=== PATIENT | female | born 1965 | race Caucasian/White ===

== ENCOUNTER 2019-01-30 18:40 | Inpatient (IN) | payer OTHER ==
--- NOTE | 2019-01-30 18:58 | PDOC ---
Rapid Medical Evaluation Chief Complaint: Headache Time Seen by Provider: 01/30/19 18:52 Medical Evaluation: 01/30/19 18:53 53 year old female with frequent falls now with unsteady gait. patient alert awake, legally blind. patient seen in the [facility] 4 x as per note from nurse. as per [facility] nurse patient did not have a ct scan for the head injury AT [facility] PE: patient alert A: head injury; unsteady gait P: patient to the ER for further management of care. Discharge Disposition - Diagnosis Headache Qualifiers: Headache type: unspecified Headache chronicity pattern: acute headache Intractability: not intractable Qualified Code(s): R51 - Headache Head injury Qualifiers: Encounter type: initial encounter Qualified Code(s): S09.90XA - Unspecified injury of head, initial encounter - Referrals - Patient Instructions - Post Discharge Activity
[2019-01-30 20:18] LABS: EPI CELLS 0.9 /HPF (0-5/HPF); HYALINE CASTS 0 /lpf (0-8); PH,URINE 6.5 (5.0-8.0); URINE APPEARANCE CLEAR; URINE BACTERIA 8.8 /hpf (NEGATIVE); URINE BILIRUBIN NEGATIVE (NEGATIVE); URINE COLOR YELLOW; URINE GLUCOSE (UA) NEGATIVE (NEGATIVE); URINE KETONE NEGATIVE (NEGATIVE); URINE LEUK ESTERASE 1+ (NEGATIVE); URINE NITRITE NEGATIVE (NEGATIVE); URINE PROTEIN NEGATIVE (NEGATIVE); URINE RBC 0 /hpf (0-4); URINE UROBILINOGEN 0.2 mg/dL (0.2-1.0); URINE WBC 2 /hpf (0-5)
[2019-01-30 21:14] LABS: BASO % 0.8 % (0-2.0); EOS % 1.8 % (0-4.5); HEMATOCRIT 29.2 % (32.4-45.2); HEMOGLOBIN 9.7 GM/dL (10.7-15.3); LYMPH % 43.6 % (8-40); MCHC 33.4 g/dl (32.0-36.0); MEAN CELL VOLUME 89.9 fl (80-96); MEAN PLT VOLUME 9.2 fl (7.5-11.1); MONO % 11.5 % (3.8-10.2); NEUT % 42.3 % (42.8-82.8); PLATELET COUNT 99 K/MM3 (134-434); RBC 3.25 M/mm3 (3.60-5.2)
[2019-01-30 21:40] LABS: ALBUMIN 3.3 g/dl (3.4-5.0); BILIRUBIN,TOTAL 0.3 mg/dL (0.2-1); BLOOD UREA NITROGEN 15.5 mg/dL (7-18); CALCIUM 9.4 mg/dL (8.5-10.1); CREATININE 0.6 mg/dL (0.55-1.3); POTASSIUM 4.1 mmol/L (3.5-5.1); TOT PROT 6.5 g/dl (6.4-8.2)
--- NOTE | 2019-01-30 22:37 | PDOC ---
History of Present Illness - General Chief Complaint: Injury Stated Complaint: FALL Time Seen by Provider: 01/30/19 18:52 History Source: Patient, Old Records, Other (staff from [facility]) Exam Limitations: No Limitations Past History - Past Medical History Allergies/Adverse Reactions: Allergies Allergy/AdvReac Type Severity Reaction Status Date / Time No Known Allergies Allergy Verified 01/30/19 18:53 Home Medications: Ambulatory Orders Calcium Carbonate/Vitamin D3 [Calcium 600 + D3 Softgel] 1 each PO DAILY Calcium Carbonate/Vitamin D3 [Calcium 600 + Vit D 400 Softgl] 1 each PO DAILY Cholecalciferol (Vitamin D3) [Vitamin D3] 1,000 unit PO DAILY 01/30/19 Lamotrigine [Lamictal] 100 mg PO AM 01/30/19 Lamotrigine [Lamictal] 200 mg PO HS 01/30/19 Levothyroxine Sodium [Synthroid] 75 mcg PO DAILY 01/30/19 Loratadine 10 mg PO DAILY 01/30/19 Miconazole Nitrate [Miconazorb AF] 71 gm TP BID 01/30/19 Multivitamin [Multiple Vitamins] 1 each PO DAILY 01/30/19 Simvastatin 20 mg PO DAILY 01/30/19 Thiamine HCl [Vitamin B-1] 100 mg PO DAILY 01/30/19 Ubidecarenone [Coenzyme Q-10] 30 mg PO DAILY 01/30/19 levETIRAcetam [Keppra -] 1,000 mg PO BID 01/30/19 - Suicide/Smoking/Psychosocial Hx Smoking History: Never smoked Hx Alcohol Use: No Drug/Substance Use Hx: No *Physical Exam - Vital Signs Last Vital Signs Temp Pulse Resp BP Pulse Ox 95 F L 52 L 18 125/71 100 01/30/19 21:20 01/30/19 21:20 01/30/19 21:20 01/30/19 21:20 01/30/19 21:20 - Physical Exam General Appearance: No: Apparent Distress HEENT: positive: Other (+L parietal hematoma, +mild swelling along forehead, + bruise below R eye) Respiratory/Chest: positive: Lungs Clear, Normal Breath Sounds. negative: Respiratory Distress Cardiovascular: positive: Regular Rhythm, Regular Rate, S1, S2. negative: Murmur Gastrointestinal/Abdominal: positive: Soft. negative: Tender Neurologic: positive: litigation coordinator II-XII NML intact, Fully Oriented, Alert, Normal Mood/ Affect, Motor Strength 5/5. negative: Facial Droop, Confused, Disoriented ED Treatment Course - LABORATORY CBC & Chemistry Diagram: 01/30/19 20:56 01/30/19 20:56 - ADDITIONAL ORDERS Additional order review: Laboratory Results 01/30/19 01/30/19 20:56 20:00 Sodium 150 H Potassium 4.1 Chloride 110 H Carbon Dioxide 40 H Anion Gap 0 L BUN 15.5 Creatinine 0.6 Est GFR (CKD-EPI)AfAm 120.61 Est GFR (CKD-EPI)NonAf 104.06 Random Glucose 66 L Calcium 9.4 Total Bilirubin 0.3 AST 46 H ALT 36 Alkaline Phosphatase 147 H Total Protein 6.5 Albumin 3.3 L Urine Color Yellow Urine Appearance Clear Urine pH 6.5 Ur Specific [place] 1.010 Urine Protein Negative Urine Glucose (UA) Negative Urine Ketones Negative Urine Blood Negative Urine Nitrite Negative Urine Bilirubin Negative Urine Urobilinogen 0.2 Ur Leukocyte Esterase 1+ H Urine WBC (Auto) 2 Urine RBC (Auto) 0 Urine Casts (Auto) 0 U Epithel Cells (Auto) 0.9 Urine Bacteria (Auto) 8.8 01/30/19 20:56 RBC 3.25 L MCV 89.9 MCHC 33.4 RDW 16.0 H MPV 9.2 Neutrophils % 42.3 L Lymphocytes % 43.6 H Monocytes % 11.5 H Eosinophils % 1.8 Basophils % 0.8 Medical Decision Making - Medical Decision Making 53 y/o F hx of bradycardia, lymphedema, hypothyroidism, seizures (on keppra and lamictal), legally blind since , from [facility] ([facility]) was sent in for evaluation by [facility] due to recurrent falls. Patient mentions feeling off balance x 3 weeks - 1 month, getting worse this week. Patient has trauma to head/face from falls. Patient was seen in [facility] 4x (01/19, , 01/28, 01/29) due to falls, but per records, no imaging was done of her brain. Patient denies this happening in the past. No seizure activity was noted per staff. Denies fever, sob, cp, vomiting, diarrhea, dizziness, vertigo, numbness/tingling of extremities. Patient noted to be hypothermic per rectal temp of 95 D/W Dr. Mcnamara - given afebrile, not tachycardic and normotensive with no source of fever, does not feel this is sepsis Abnormal Lab Results 01/30/19 01/30/19 01/30/19 20:00 20:56 20:56 WBC 3.0 L RBC 3.25 L Hgb 9.7 L Hct 29.2 L RDW 16.0 H Plt Count 99 L Absolute Neuts (auto) 1.3 L Neutrophils % 42.3 L Lymphocytes % 43.6 H Monocytes % 11.5 H Nucleated RBC % 1 H Sodium 150 H Chloride 110 H Carbon Dioxide 40 H Anion Gap 0 L Random Glucose 66 L AST 46 H Alkaline Phosphatase 147 H Albumin 3.3 L Ur Leukocyte Esterase 1+ H Rest of labs reviewed - pancytopenia noted, hypernatremic as well, glucose 66 Patient was placed on fluid restriction by her supervisor heat treating as patient had seizure last year due to hyponatremia (per staff, she is allowed 60 oz per day) Patient given food to eat CT head negative Will admit for likely need for MRI/MRA and neuro consult needed on admission to determine cause of ataxia Medicine paged and waiting to hear back 01/30/19 22:28 *DC/Admit/Observation/Transfer Diagnosis at time of Disposition: Ataxia - Discharge Dispostion Condition at time of disposition: Stable Decision to Admit order: Yes - Referrals Referrals: Mandy Durbin [Primary Care Provider] - - Patient Instructions - Post Discharge Activity
--- NOTE | 2019-01-30 23:41 | HP ---
Admitting History and Physical - Primary Care Physician PCP: Dr. lamb - Admission Chief Complaint: frequent falls, last fall 01/29 unsteady gait History of Present Illness: 53 year old female with PMhx of Hypothyroidism, seizures, legally blind, bradycardia, lymphedema arrived to ED from [facility]pc ([facility]) due to multiple falls in one week. Member fell (01/27,01/28, 911) when asked patient feels off balance when walking. Patient was seen in [facility] for priors falls , however according to patient no imaging were done. Patient noted with left side face/forehead with bruising, and left shoulder ecchymosis, ROM fair denies pain. According to patient last seizure activity she had of last year, no recent medication changes were made. When walking she feels off balance which she experienced in past but has been worsen of recent. Patient denies fever, sob, cp, dizziness, vertigo, vomiting, diarrhea, numbness/ tingling of extremities. 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 Cardiovascular: Yes: Other (bradycardia) Endocrine: Yes: Hyperthyroidism Additional Past Medical History: Legally blind since - Smoking History Smoking history: Never smoked Have you smoked in the past 12 months: No - Alcohol/Substance Use Hx Alcohol Use: No History of Substance Use: reports: None - Social History Usual Living Arrangement: Yes: Assisted Living ADL: Support Services History of Recent Travel: No Home Medications - Allergies Allergies/Adverse Reactions: Allergies Allergy/AdvReac Type Severity Reaction Status Date / Time No Known Allergies Allergy Verified 01/30/19 18:53 - Home Medications Home Medications: Ambulatory Orders Calcium Carbonate/Vitamin D3 [Calcium 600 + D3 Softgel] 1 each PO DAILY Calcium Carbonate/Vitamin D3 [Calcium 600 + Vit D 400 Softgl] 1 each PO DAILY Cholecalciferol (Vitamin D3) [Vitamin D3] 1,000 unit PO DAILY 01/30/19 Lamotrigine [Lamictal] 100 mg PO AM 01/30/19 Lamotrigine [Lamictal] 200 mg PO HS 01/30/19 Levothyroxine Sodium [Synthroid] 75 mcg PO DAILY 01/30/19 Loratadine 10 mg PO DAILY 01/30/19 Miconazole Nitrate [Miconazorb AF] 71 gm TP BID 01/30/19 Multivitamin [Multiple Vitamins] 1 each PO DAILY 01/30/19 Simvastatin 20 mg PO DAILY 01/30/19 Thiamine HCl [Vitamin B-1] 100 mg PO DAILY 01/30/19 Ubidecarenone [Coenzyme Q-10] 30 mg PO DAILY 01/30/19 levETIRAcetam [Keppra -] 1,000 mg PO BID 01/30/19 Family Disease History - Family Disease History Family Disease History: CA: Mother (Lung Ca) Review of Systems - Review of Systems Constitutional: reports: Other ("fells off balance") Eyes: reports: Other (legally blind) HENT: reports: No Symptoms Neck: reports: No Symptoms Cardiovascular: reports: No Symptoms Respiratory: reports: No Symptoms Gastrointestinal: reports: No Symptoms Genitourinary: reports: No Symptoms Musculoskeletal: reports: No Symptoms, Other Integumentary: reports: Bruising (left side face, forehead, left shoulder ecchymosis) Neurological: reports: Unsteady Gait Endocrine: reports: No Symptoms Hematology/Lymphatic: reports: Other (left shoulder ecchymosis (post fall)) Psychiatric: reports: No Symptoms Physical Examination Vital Signs: Vital Signs Temperature 95 F L 01/30/19 21:20 Pulse Rate 52 L 01/30/19 21:20 Respiratory Rate 18 01/30/19 21:20 Blood Pressure 125/71 01/30/19 21:20 O2 Sat by Pulse Oximetry (%) 100 01/30/19 21:20 Constitutional: Yes: No Distress, Calm HENT: Yes: Atraumatic, Normocephalic Neck: Yes: Supple, Trachea Midline Cardiovascular: Yes: Regular Rate and Rhythm Respiratory: Yes: Regular, CTA Bilaterally Gastrointestinal: Yes: Normal Bowel Sounds, Soft Musculoskeletal: Yes: WNL Extremities: Yes: WNL Edema: No Peripheral Pulses WNL: Yes Integumentary: Yes: Other (ecchymosis left shoudler, left side face, forhead brusing) Neurological: Yes: Alert, Oriented, Ataxia, Unsteady Gait ...Motor Strength: WNL Psychiatric: Yes: WNL Labs: CBC, BMP 01/30/19 20:56 01/30/19 20:56 Imaging - Results Cat Scan: Report Reviewed (CT head: no acute pathology) Problem List - Problems (1) Multiple falls Code(s): R29.6 - REPEATED FALLS (2) Ataxia Code(s): R27.0 - ATAXIA, UNSPECIFIED (3) Seizure Code(s): R56.9 - UNSPECIFIED CONVULSIONS (4) Hypernatremia Code(s): E87.0 - HYPEROSMOLALITY AND HYPERNATREMIA (5) Pancytopenia Code(s): D61.818 - OTHER PANCYTOPENIA (6) Hypothyroidism Code(s): E03.9 - HYPOTHYROIDISM, UNSPECIFIED (7) Bradycardia Code(s): R00.1 - BRADYCARDIA, UNSPECIFIED (8) Legally blind Code(s): H54.8 - LEGAL BLINDNESS, DEFINED IN [place] Assessment/Plan 53 year old female with PMhx of Hypothyroidism, seizures, legally blind, bradycardia, HLD, lymphedema arrived to ED from [facility]pc ([facility]) due to multiple falls in one week. Member fell (01/27,01/28, 911) when asked patient feels off balance when walking. # Ataxia #Multiple falls # bradycardia - 3 falls in week - patient also noted with panctopenia, hypothermic - CT head: negative - EKG: sinus shreya, no st changes - monitor vitals q 4 - will repeat cbc, bmp in AM - follow up neurology,? MRI/MRA - consider Cardiology follow up h/o bradycardia, and multiple falls # seizure - last seizure activity 2x (May, October) in 2018 - continue with keppra 1000 mg BID - continue with lamictal 100mg po Am , 200mg po QHS - takes Coenzyme 30 mg daily - follow up keppra level, coenzyme level - neurology follow up # Hypothyroidism - continue with synthroid 75 mcg - follow up TSH,T4 # HLD - continue with zocor 20 mg po daily Visit type - Emergency Visit Emergency Visit: Yes ED Registration Date: 01/30/19 Care time: The patient presented to the Emergency Department on the above date and was hospitalized for further evaluation of their emergent condition. - New Patient This patient is new to me today: Yes Date on this admission: 01/31/19 - Critical Care Critical Care patient: No
[2019-01-31 01:12] VITALS: BMI 21.7
[2019-01-31] MEDS ORDERED: SCOPOLAMINE HYDROBROMIDE 1 PATCH PATCH.TD72 TD SCH (04:00)
[2019-01-31] MEDS ORDERED: LAMOTRIGINE 100 MG PO SCH (07:00)
[2019-01-31] MEDS ORDERED: LEVOTHYROXINE NA 75 MCG TABLET (FP) PO SCH (07:00)
[2019-01-31 08:08] LABS: HEMATOCRIT 27.8 % (32.4-45.2); HEMOGLOBIN 9.5 GM/dL (10.7-15.3); MCH 30.3 pg (25.7-33.7); MCHC 34.1 g/dl (32.0-36.0); MEAN CELL VOLUME 88.8 fl (80-96); MEAN PLT VOLUME 8.8 fl (7.5-11.1); PLATELET COUNT 91 K/MM3 (134-434); RBC 3.12 M/mm3 (3.60-5.2); RDW 15.9 % (11.6-15.6); WHITE BLOOD COUNT 2.6 K/mm3 (4.0-10.0)
[2019-01-31 08:44] LABS: CHOLESTEROL 197 mg/dL (50-200); HDL CHOLESTEROL 109 mg/dL (40-60); TRIGLYCERIDES 51 mg/dL (0-150)
[2019-01-31 09:03] LABS: ALBUMIN 3.2 g/dl (3.4-5.0); BILIRUBIN,TOTAL 0.4 mg/dL (0.2-1); BLOOD UREA NITROGEN 12.1 mg/dL (7-18); CALCIUM 9.6 mg/dL (8.5-10.1); CREATININE 0.6 mg/dL (0.55-1.3); POTASSIUM 3.7 mmol/L (3.5-5.1); TOT PROT 6.2 g/dl (6.4-8.2)
--- NOTE | 2019-01-31 09:23 | CONSULT ---
Consult Consult Specialty:: Endocrinology Referred by:: Dr Miller Reason for Consultation:: Hypothyroidism - History of Present Illness Chief Complaint: Falls History of Present Illness: This is a 53 year old female with PMhx of Hypothyroidism, seizures, legally blind since , bradycardia, lymphedema presented [facility] ED from [facility] due to multiple falls in one week. Pt says she usually falls when she leans forward to worm picker stuff from the floor. Denies any heat or cold intolerance. No CP/SOB/Palpitations. Was told to drink only 60oz of water in 24 hours by her MD at the facility. 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 Cardio/Vascular: Yes: Other (bradycardia) ...: No Endocrine: Yes: Hyperthyroidism - Alcohol/Substance Use Hx Alcohol Use: No History of Substance Use: reports: None - Smoking History Smoking history: Never smoked Have you smoked in the past 12 months: No - Social History ADL: Support Services History of Recent Travel: No Home Medications - Allergies Allergies/Adverse Reactions: Allergies Allergy/AdvReac Type Severity Reaction Status Date / Time No Known Allergies Allergy Verified 01/30/19 18:53 - Home Medications Home Medications: Ambulatory Orders Calcium Carbonate/Vitamin D3 [Calcium 600 + D3 Softgel] 1 each PO DAILY Calcium Carbonate/Vitamin D3 [Calcium 600 + Vit D 400 Softgl] 1 each PO DAILY Cholecalciferol (Vitamin D3) [Vitamin D3] 1,000 unit PO DAILY 01/30/19 Lamotrigine [Lamictal] 100 mg PO AM 01/30/19 Lamotrigine [Lamictal] 200 mg PO HS 01/30/19 Levothyroxine Sodium [Synthroid] 75 mcg PO DAILY 01/30/19 Loratadine 10 mg PO DAILY 01/30/19 Miconazole Nitrate [Miconazorb AF] 71 gm TP BID 01/30/19 Multivitamin [Multiple Vitamins] 1 each PO DAILY 01/30/19 Simvastatin 20 mg PO DAILY 01/30/19 Thiamine HCl [Vitamin B-1] 100 mg PO DAILY 01/30/19 Ubidecarenone [Coenzyme Q-10] 30 mg PO DAILY 01/30/19 levETIRAcetam [Keppra -] 1,000 mg PO BID 01/30/19 Haloperidol [Haldol -] 0.5 tab PO HS 01/31/19 Olopatadine HCl [Pataday] 2.5 ml OP DAILY 01/31/19 Scopolamine 1 each TD Q3D 01/31/19 Family Disease History - Family Disease History Family Disease History: CA: Mother (Lung Ca) Review of Systems - Review of Systems Constitutional: reports: No Symptoms Eyes: reports: No Symptoms HENT: reports: No Symptoms Neck: reports: No Symptoms Cardiovascular: reports: No Symptoms Respiratory: reports: No Symptoms Gastrointestinal: reports: No Symptoms Musculoskeletal: reports: No Symptoms Integumentary: reports: No Symptoms Psychiatric: reports: No Symptoms Physical Exam Vital Signs: Vital Signs Temperature 96 F L 01/31/19 06:24 Pulse Rate 49 L 01/31/19 05:00 Respiratory Rate 18 01/31/19 05:00 Blood Pressure 114/70 01/31/19 05:00 O2 Sat by Pulse Oximetry (%) 100 01/30/19 22:59 Constitutional: Yes: No Distress, Calm HENT: Yes: Normocephalic Neck: Yes: Supple, Trachea Midline Cardiovascular: Yes: Regular Rate and Rhythm Respiratory: Yes: Regular, CTA Bilaterally Edema: No Neurological: Yes: Alert, Oriented Labs: CBC, BMP 01/31/19 07:27 01/31/19 07:27 Assessment/Plan AP: Hypothyroidism Blindness Falls Leukopenia With a TSH of 5.39, her symptoms are unlikely to be related to her thyroid status Continue LT4 75 mcg QD Monitor electrolytes Monitor CBC Monitor Blood sugar, w/u if pt develops symptomatic hypoglycemia Get record from MD at facility if possible Will f/u I am away unitil 02.03.19. Dr Parker is covering. Please call me at [phone] with any questions.
[2019-01-31] MEDS ORDERED: lamoTRIgine 100 MG TABLET (FP) PO SCH ×2 (10:00→22:00)
[2019-01-31] MEDS ORDERED: HEPARIN NA (PORCINE) 5,000 UNITS/ML 1ML VIAL SQ SCH (10:00)
[2019-01-31] MEDS ORDERED: levETIRAcetam 500 MG TABLET (FP) PO SCH (10:00)
--- NOTE | 2019-01-31 12:55 | CONSULT ---
Consult - text type - Consultation Consultation Note: NEUROLOGY CONSULT GREATLY APPRECIATED: Events reviewed and discussed with ANANT Bernardo. Patient examined. This 53 yo RH woman with hypothyroidism, seizures since adolescence, HLD, congenital blindness. Lives in a alf and ambulates without assistance. On: Vit D3, lamictal 100 mg QAM/200 mg HS, loratadine, MTV, simvastatin, thiamine 100 mg qd, leveteracitam 1000 mg Q12H, Haldol 0.5 mg HS, scopolamine. Describes seizures in childhood were loss of tone without prodrome, obscuration of consciousness, but not LOC. + Urinary incontinence Has been on and off psychotropic meds for almost 30 years, including Haldol and Abilify for auditory hallucinations and ideas of grandiosity. Now on Haldod with increased difficulty walking, swallowing, "drooling" for which she is given Scopolamine patch. This was also accompanied by persistent falls without prodrome attributed to "seizures," but this time without urinary incontinence. Admits she began to decline psychotropic meds, but continues taking her AED's at the alf. Head CT (reviewed): left parietal scalp hematoma. WBC= 2.6 platelets 91; TSH 5.39; Urine WBC= 2 SHANELLE: Thin/tiny stature. Cor reg. Lymphedema in legs. Various ages ecchymosis to R samaritan/R eyelid. L shoulder, R wrist. NEURO: Awake, alert, responsive. [facility] Jan 31, 2019. CNII-CNXII: Blind. Smile symmetric. Gag ok. Excess oral secretions. Motor: No rest tremor or drift. Symmetric grasps. Decreased JULISSA's R > L. + Cogwheeling with reinforcement. Reflexes normal. Toes downgoing. Coordination: No FTN dystaxia. Sensation: Feels pinch all fours. Gait: Sl flexed, shuffling. Retropulsive. 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 Doubt seizures caused this admission. 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 Suggest: Orthostatic BPs Carotid duplex Contine leveteracitam 1500 mg q12H and change lamictal to 200 mg q12H. Observe off Haldol.(may also be causing agranoulocytosis, hyponatremia) D/C scopolamine patch as anticholinergic effects may worsen hallucinations and cognition. If hallucinations persist, consider addition of quetiapine 25 -> 50 mg HS PT eval with walker for gait safety Thank you very much, Joaquín Hector MD
--- NOTE | 2019-01-31 14:02 | EKG ---
Test Reason : Blood Pressure : / mmHG Vent. Rate : 054 BPM Atrial Rate : 054 BPM P-R Int : 130 ms QRS Dur : 102 ms QT Int : 460 ms P-R-T Axes : 057 041 053 degrees QTc Int : 436 ms POOR DATA QUALITY, INTERPRETATION MAY BE ADVERSELY AFFECTED SINUS BRADYCARDIA NO PREVIOUS ECGS AVAILABLE Confirmed by FIDELINA WILLIS MD ([id number]) on 01/31/2019 2:02:12 PM Referred By: Confirmed By:FIDELINA WILLIS MD
--- NOTE | 2019-01-31 14:23 | PN ---
Teaching Attending Note Name of Resident: Woodrow Cerrato ATTENDING PHYSICIAN STATEMENT I saw and evaluated the patient. I reviewed the resident's note and discussed the case with the resident. I agree with the resident's findings and plan as documented with exceptions below. SUBJECTIVE: patient seen and examined, no complaints. reports has been unsteady and falling at the long-term. However few episodes, with no full recollection though not aware of any shaking, tongue bite or confusion after the episode. OBJECTIVE: Vital Signs Period Temp Pulse Resp BP Sys/Andrade Pulse Ox Last 24 Hr 95 F-98.2 F 46-57 18-18 104-125/68-73 100-100 Intake & Output 01/28/19 01/29/19 01/30/19 01/31/19 23:59 23:59 23:59 23:59 Intake Total 100 100 Balance 100 100 Weight 107 lb 12.8 oz General: sitting in bed in no acute distress, awake, appropriate, HEENT: legally blind, right hi-orbital resolving ecchymosis Neck; Soft, supple, no JVD Chest: limited by habitus, no rales or wheezing Abdomen:Soft, Nt ND extremities: UE contractures with limited ROM Musculoskeletal: limited ROM left shoulder/clavicular region Home Medications Medication Instructions Recorded Calcium Carbonate/Vitamin D3 1 each PO DAILY 01/30/19 [Calcium 600 + D3 Softgel] Calcium Carbonate/Vitamin D3 1 each PO DAILY 01/30/19 [Calcium 600 + Vit D 400 Softgl] Cholecalciferol (Vitamin D3) 1,000 unit PO DAILY 01/30/19 [Vitamin D3] Lamotrigine [Lamictal] 100 mg PO AM 01/30/19 Lamotrigine [Lamictal] 200 mg PO HS 01/30/19 Levothyroxine Sodium [Synthroid] 75 mcg PO DAILY 01/30/19 Loratadine 10 mg PO DAILY 01/30/19 Miconazole Nitrate [Miconazorb AF] 71 gm TP BID 01/30/19 Multivitamin [Multiple Vitamins] 1 each PO DAILY 01/30/19 Simvastatin 20 mg PO DAILY 01/30/19 Thiamine HCl [Vitamin B-1] 100 mg PO DAILY 01/30/19 Ubidecarenone [Coenzyme Q-10] 30 mg PO DAILY 01/30/19 levETIRAcetam [Keppra -] 1,000 mg PO BID 01/30/19 Haloperidol [Haldol -] 0.5 tab PO HS 01/31/19 Olopatadine HCl [Pataday] 2.5 ml OP DAILY 01/31/19 Scopolamine 1 each TD Q3D 01/31/19 Active Medications Heparin Sodium (Porcine) (Heparin -) 5,000 unit SQ BID [facility] Last Admin: 01/31/19 10:09 Dose: 5,000 unit Lamotrigine (Lamictal -) 200 mg PO HS [facility] Lamotrigine (Lamictal -) 100 mg PO DAILY [facility] Last Admin: 01/31/19 10:08 Dose: 100 mg Levetiracetam (Keppra -) 1,000 mg PO BID [facility] Last Admin: 01/31/19 10:08 Dose: 1,000 mg Levothyroxine Sodium (Synthroid -) 75 mcg PO ACBK [facility] Last Admin: 01/31/19 06:00 Dose: 75 mcg Scopolamine HBr (Transderm-Scop -) 1 patch TD Q3D [facility] Last Admin: 01/31/19 06:01 Dose: 1 patch Laboratory Results - last 24 hr 01/30/19 01/30/19 01/30/19 20:00 20:56 20:56 WBC 3.0 L RBC 3.25 L Hgb 9.7 L Hct 29.2 L MCV 89.9 MCH 30.0 MCHC 33.4 RDW 16.0 H Plt Count 99 L MPV 9.2 Absolute Neuts (auto) 1.3 L Neutrophils % 42.3 L Lymphocytes % 43.6 H Monocytes % 11.5 H Eosinophils % 1.8 Basophils % 0.8 Nucleated RBC % 1 H Sodium 150 H Potassium 4.1 Chloride 110 H Carbon Dioxide 40 H Anion Gap 0 L BUN 15.5 Creatinine 0.6 Est GFR (CKD-EPI)AfAm 120.61 Est GFR (CKD-EPI)NonAf 104.06 POC Glucometer Random Glucose 66 L Serum Osmolality Calcium 9.4 Total Bilirubin 0.3 AST 46 H ALT 36 Alkaline Phosphatase 147 H Total Protein 6.5 Albumin 3.3 L Triglycerides Cholesterol Total LDL Cholesterol HDL Cholesterol TSH Free T4 Urine Color Yellow Urine Appearance Clear Urine pH 6.5 Ur Specific [place] 1.010 Urine Protein Negative Urine Glucose (UA) Negative Urine Ketones Negative Urine Blood Negative Urine Nitrite Negative Urine Bilirubin Negative Urine Urobilinogen 0.2 Ur Leukocyte Esterase 1+ H Urine WBC (Auto) 2 Urine RBC (Auto) 0 Urine Casts (Auto) 0 U Epithel Cells (Auto) 0.9 Urine Bacteria (Auto) 8.8 01/31/19 01/31/19 01/31/19 07:27 07:27 07:27 WBC 2.6 L RBC 3.12 L Hgb 9.5 L Hct 27.8 L MCV 88.8 MCH 30.3 MCHC 34.1 RDW 15.9 H Plt Count 91 L MPV 8.8 Absolute Neuts (auto) Neutrophils % Lymphocytes % Monocytes % Eosinophils % Basophils % Nucleated RBC % Sodium Potassium Chloride Carbon Dioxide Anion Gap BUN Creatinine Est GFR (CKD-EPI)AfAm Est GFR (CKD-EPI)NonAf POC Glucometer Random Glucose Serum Osmolality Calcium Total Bilirubin AST ALT Alkaline Phosphatase Total Protein Albumin Triglycerides Cholesterol Total LDL Cholesterol HDL Cholesterol TSH 5.39 H Free T4 1.11 Urine Color Urine Appearance Urine pH Ur Specific [place] Urine Protein Urine Glucose (UA) Urine Ketones Urine Blood Urine Nitrite Urine Bilirubin Urine Urobilinogen Ur Leukocyte Esterase Urine WBC (Auto) Urine RBC (Auto) Urine Casts (Auto) U Epithel Cells (Auto) Urine Bacteria (Auto) 01/31/19 01/31/19 01/31/19 07:27 07:27 09:40 WBC RBC Hgb Hct MCV MCH MCHC RDW Plt Count MPV Absolute Neuts (auto) Neutrophils % Lymphocytes % Monocytes % Eosinophils % Basophils % Nucleated RBC % Sodium 148 H Potassium 3.7 Chloride 109 H Carbon Dioxide 34 H Anion Gap 5 L BUN 12.1 Creatinine 0.6 Est GFR (CKD-EPI)AfAm 120.61 Est GFR (CKD-EPI)NonAf 104.06 POC Glucometer Random Glucose 55 L Serum Osmolality 310 H Calcium 9.6 Total Bilirubin 0.4 AST 43 H ALT 33 Alkaline Phosphatase 140 H Total Protein 6.2 L Albumin 3.2 L Triglycerides 51 Cholesterol 197 Total LDL Cholesterol 59 HDL Cholesterol 109 H TSH Free T4 Urine Color Urine Appearance Urine pH Ur Specific [place] Urine Protein Urine Glucose (UA) Urine Ketones Urine Blood Urine Nitrite Urine Bilirubin Urine Urobilinogen Ur Leukocyte Esterase Urine WBC (Auto) Urine RBC (Auto) Urine Casts (Auto) U Epithel Cells (Auto) Urine Bacteria (Auto) 01/31/19 11:11 WBC RBC Hgb Hct MCV MCH MCHC RDW Plt Count MPV Absolute Neuts (auto) Neutrophils % Lymphocytes % Monocytes % Eosinophils % Basophils % Nucleated RBC % Sodium Potassium Chloride Carbon Dioxide Anion Gap BUN Creatinine Est GFR (CKD-EPI)AfAm Est GFR (CKD-EPI)NonAf POC Glucometer 99 Random Glucose Serum Osmolality Calcium Total Bilirubin AST ALT Alkaline Phosphatase Total Protein Albumin Triglycerides Cholesterol Total LDL Cholesterol HDL Cholesterol TSH Free T4 Urine Color Urine Appearance Urine pH Ur Specific [place] Urine Protein Urine Glucose (UA) Urine Ketones Urine Blood Urine Nitrite Urine Bilirubin Urine Urobilinogen Ur Leukocyte Esterase Urine WBC (Auto) Urine RBC (Auto) Urine Casts (Auto) U Epithel Cells (Auto) Urine Bacteria (Auto) ASSESSMENT AND PLAN: 53 yof with PMHx of Hypothyroidism, seizures, legally blind, bradycardia, lymphedema, ?hyponatremia, admitted with frequent falls, noted with hypothermia , bradycardia, hypernatremia -Recurrent falls/Gait instability -Hypothermia, hypothyroidism, r/o infection -Hypernatremia, ?from fluid restriction, r/o DI (central vs nephrogenic),?drug mediated. -Hypoglycemia -Sinus bradycardia, ?hypothyroidism Plan: patient reports h/o seizures attributed to hyponatremia, on fluid restriction earlier 33 oz, now upto 60 oz per pv design and installation technician at [facility]. retrieve prior information. Check urine electrolytes, urine/serum osmolarity. Nephrology/Endocrine consult. Encourage free water intake. Hold off on IV hydration for now Hypothermia, but patient asymptomatic. Screen for infection. Blood cx and ua/ urine cultures. Gene barrios prn. Follow up endocrine input, Continue levothyroxine. recurrent falls, patient unsure of seizures. Neurology input. Continue Keppra/ Lamictal. Seizure precautions. transfer to telemetry. discussed with patient and nursing, all questions answered.
[2019-01-31 15:00] LABS: EPI CELLS 0.5 /HPF (0-5/HPF); HYALINE CASTS 0 /lpf (0-8); PH,URINE 8.5 (5.0-8.0); URINE APPEARANCE CLEAR; URINE BACTERIA 8.6 /hpf (NEGATIVE); URINE BILIRUBIN NEGATIVE (NEGATIVE); URINE COLOR YELLOW; URINE GLUCOSE (UA) NEGATIVE (NEGATIVE); URINE KETONE NEGATIVE (NEGATIVE); URINE LEUK ESTERASE NEGATIVE (NEGATIVE); URINE NITRITE NEGATIVE (NEGATIVE); URINE PROTEIN NEGATIVE (NEGATIVE); URINE RBC 1 /hpf (0-4); URINE UROBILINOGEN 0.2 mg/dL (0.2-1.0); URINE WBC 0 /hpf (0-5)
--- NOTE | 2019-01-31 15:55 | CONSULT ---
Consult Consult Specialty:: Nephrology Reason for Consultation:: hypernatremia - History of Present Illness Chief Complaint: s/p fall History of Present Illness: Pt is a 53 year old female with pmhx of hypothyroidism, epilepsy, legally blind , bradycardia, lymphedema, and hyponatremia treated with fluid restriction who presents to the ER with multiple falls. She says that she was diagnosed with hyponatremia in an outside facility and was placed on a fluid restriction. Her sodium has been mildly elevated and her fluid restriction was liberated to 60 oz. She denies shortness of breath. She denies polyuria. She denies headache. She denies vomiting or diarrhea. - History Source History Provided By: Patient, Medical Record - Past Medical History REHAB/PRE VOCATIONAL COUNSELOR: Yes: Seizure Cardio/Vascular: Yes: Other (bradycardia) Renal/: Yes: Other (hyponatremia) ...: No Endocrine: Yes: Hypothyroidism - Alcohol/Substance Use Hx Alcohol Use: No History of Substance Use: reports: None - Smoking History Smoking history: Never smoked Have you smoked in the past 12 months: No - Social History ADL: Support Services History of Recent Travel: No Home Medications - Allergies Allergies/Adverse Reactions: Allergies Allergy/AdvReac Type Severity Reaction Status Date / Time No Known Allergies Allergy Verified 01/30/19 18:53 - Home Medications Home Medications: Ambulatory Orders Calcium Carbonate/Vitamin D3 [Calcium 600 + D3 Softgel] 1 each PO DAILY Calcium Carbonate/Vitamin D3 [Calcium 600 + Vit D 400 Softgl] 1 each PO DAILY Cholecalciferol (Vitamin D3) [Vitamin D3] 1,000 unit PO DAILY 01/30/19 Lamotrigine [Lamictal] 100 mg PO AM 01/30/19 Lamotrigine [Lamictal] 200 mg PO HS 01/30/19 Levothyroxine Sodium [Synthroid] 75 mcg PO DAILY 01/30/19 Loratadine 10 mg PO DAILY 01/30/19 Miconazole Nitrate [Miconazorb AF] 71 gm TP BID 01/30/19 Multivitamin [Multiple Vitamins] 1 each PO DAILY 01/30/19 Simvastatin 20 mg PO DAILY 01/30/19 Thiamine HCl [Vitamin B-1] 100 mg PO DAILY 01/30/19 Ubidecarenone [Coenzyme Q-10] 30 mg PO DAILY 01/30/19 levETIRAcetam [Keppra -] 1,000 mg PO BID 01/30/19 Haloperidol [Haldol -] 0.5 tab PO HS 01/31/19 Olopatadine HCl [Pataday] 2.5 ml OP DAILY 01/31/19 Scopolamine 1 each TD Q3D 01/31/19 Family Disease History - Family Disease History Family Disease History: CA: Mother (Lung Ca) Review of Systems - Review of Systems Constitutional: reports: Malaise Eyes: reports: Other (legally blind) HENT: reports: No Symptoms Neck: reports: No Symptoms Cardiovascular: reports: No Symptoms Respiratory: reports: No Symptoms Gastrointestinal: reports: No Symptoms Genitourinary: reports: No Symptoms Musculoskeletal: reports: No Symptoms Integumentary: reports: No Symptoms Neurological: reports: No Symptoms Endocrine: reports: No Symptoms Hematology/Lymphatic: reports: No Symptoms Psychiatric: reports: No Symptoms Physical Exam Vital Signs: Vital Signs Temperature 97.7 F 01/31/19 14:00 Pulse Rate 66 01/31/19 14:00 Respiratory Rate 18 01/31/19 14:00 Blood Pressure 105/67 01/31/19 14:00 O2 Sat by Pulse Oximetry (%) 100 01/31/19 09:00 Constitutional: Yes: Calm Eyes: Yes: Conjunctiva Clear HENT: Yes: Atraumatic Neck: Yes: Supple Cardiovascular: Yes: S1, S2 Respiratory: Yes: CTA Bilaterally Renal/: Yes: WNL Musculoskeletal: Yes: WNL Edema: Yes Edema: LLE: 1+, RLE: 1+ Neurological: Yes: Oriented Psychiatric: Yes: Oriented Labs: CBC, BMP 01/31/19 07:27 01/31/19 07:27 Imaging - Results Cat Scan: Report Reviewed Problem List - Problems (1) Bradycardia Code(s): R00.1 - BRADYCARDIA, UNSPECIFIED (2) Hypernatremia Code(s): E87.0 - HYPEROSMOLALITY AND HYPERNATREMIA (3) Hypothyroidism Code(s): E03.9 - HYPOTHYROIDISM, UNSPECIFIED (4) Legally blind Code(s): H54.8 - LEGAL BLINDNESS, DEFINED IN [place] (5) Multiple falls Code(s): R29.6 - REPEATED FALLS (6) Pancytopenia Code(s): D61.818 - OTHER PANCYTOPENIA (7) Seizure Code(s): R56.9 - UNSPECIFIED CONVULSIONS Assessment/Plan Current Medications Generic Name Dose Route Start Last Admin Trade Name Carin PRN Reason Stop Dose Admin Heparin Sodium (Porcine) 5,000 unit 01/31/19 22:00 Heparin - SQ BID [facility] Lamotrigine 200 mg 01/31/19 22:00 Lamictal - PO HS [facility] Lamotrigine 100 mg 02/01/19 10:00 Lamictal - PO DAILY [facility] Levetiracetam 1,000 mg 01/31/19 22:00 Keppra - PO BID [facility] Levothyroxine Sodium 75 mcg 02/01/19 07:00 Synthroid - PO ACBK [facility] Impression 1. hypernatremia 2. legally blind 3. hypothyroidism 4. lymphedema 5. bradycardia 6. epilpsy Plan - pt has a free water deficit of about 1.4 liters - will give PO free water - repeat labs tomorrow - measure urine output and monitor for polyuria - likely hypernatremia from her free water restriction
--- NOTE | 2019-01-31 18:02 | PN ---
Physical Exam: SUBJECTIVE: Patient seen and examined at bedside. No complaints at this time. Pt states she has known sodium dysregulation for which her junior sales assistant has been regulating her fluid intake. OBJECTIVE: Vital Signs Period Temp Pulse Resp BP Sys/Andrade Pulse Ox Last 24 Hr 95 F-98.2 F 46-66 18-18 104-125/67-73 100-100 Gen: small stature, NAD, AAOx3 HEENT: NCAT, congenital blindness Neck: supple, no jvd Cardio: bradycardic, regular, no mrg, s1s2 Pulm: cta b/l Abd: soft, nontender, nondistended Laboratory Results - last 24 hr 01/30/19 01/30/19 01/30/19 20:00 20:56 20:56 WBC 3.0 L RBC 3.25 L Hgb 9.7 L Hct 29.2 L MCV 89.9 MCH 30.0 MCHC 33.4 RDW 16.0 H Plt Count 99 L MPV 9.2 Absolute Neuts (auto) 1.3 L Neutrophils % 42.3 L Lymphocytes % 43.6 H Monocytes % 11.5 H Eosinophils % 1.8 Basophils % 0.8 Nucleated RBC % 1 H Sodium 150 H Potassium 4.1 Chloride 110 H Carbon Dioxide 40 H Anion Gap 0 L BUN 15.5 Creatinine 0.6 Est GFR (CKD-EPI)AfAm 120.61 Est GFR (CKD-EPI)NonAf 104.06 POC Glucometer Random Glucose 66 L Serum Osmolality Calcium 9.4 Total Bilirubin 0.3 AST 46 H ALT 36 Alkaline Phosphatase 147 H Total Protein 6.5 Albumin 3.3 L Triglycerides Cholesterol Total LDL Cholesterol HDL Cholesterol TSH Free T4 Urine Color Yellow Urine Appearance Clear Urine pH 6.5 Ur Specific [place] 1.010 Urine Protein Negative Urine Glucose (UA) Negative Urine Ketones Negative Urine Blood Negative Urine Nitrite Negative Urine Bilirubin Negative Urine Urobilinogen 0.2 Ur Leukocyte Esterase 1+ H Urine WBC (Auto) 2 Urine RBC (Auto) 0 Urine Casts (Auto) 0 U Epithel Cells (Auto) 0.9 Urine Bacteria (Auto) 8.8 Urine Osmolality Ur Random Sodium Ur Random Potassium Ur Random Chloride 01/31/19 01/31/19 01/31/19 07:27 07:27 07:27 WBC 2.6 L RBC 3.12 L Hgb 9.5 L Hct 27.8 L MCV 88.8 MCH 30.3 MCHC 34.1 RDW 15.9 H Plt Count 91 L MPV 8.8 Absolute Neuts (auto) Neutrophils % Lymphocytes % Monocytes % Eosinophils % Basophils % Nucleated RBC % Sodium Potassium Chloride Carbon Dioxide Anion Gap BUN Creatinine Est GFR (CKD-EPI)AfAm Est GFR (CKD-EPI)NonAf POC Glucometer Random Glucose Serum Osmolality Calcium Total Bilirubin AST ALT Alkaline Phosphatase Total Protein Albumin Triglycerides Cholesterol Total LDL Cholesterol HDL Cholesterol TSH 5.39 H Free T4 1.11 Urine Color Urine Appearance Urine pH Ur Specific [place] Urine Protein Urine Glucose (UA) Urine Ketones Urine Blood Urine Nitrite Urine Bilirubin Urine Urobilinogen Ur Leukocyte Esterase Urine WBC (Auto) Urine RBC (Auto) Urine Casts (Auto) U Epithel Cells (Auto) Urine Bacteria (Auto) Urine Osmolality Ur Random Sodium Ur Random Potassium Ur Random Chloride 01/31/19 01/31/19 01/31/19 07:27 07:27 09:40 WBC RBC Hgb Hct MCV MCH MCHC RDW Plt Count MPV Absolute Neuts (auto) Neutrophils % Lymphocytes % Monocytes % Eosinophils % Basophils % Nucleated RBC % Sodium 148 H Potassium 3.7 Chloride 109 H Carbon Dioxide 34 H Anion Gap 5 L BUN 12.1 Creatinine 0.6 Est GFR (CKD-EPI)AfAm 120.61 Est GFR (CKD-EPI)NonAf 104.06 POC Glucometer Random Glucose 55 L Serum Osmolality 310 H Calcium 9.6 Total Bilirubin 0.4 AST 43 H ALT 33 Alkaline Phosphatase 140 H Total Protein 6.2 L Albumin 3.2 L Triglycerides 51 Cholesterol 197 Total LDL Cholesterol 59 HDL Cholesterol 109 H TSH Free T4 Urine Color Urine Appearance Urine pH Ur Specific [place] Urine Protein Urine Glucose (UA) Urine Ketones Urine Blood Urine Nitrite Urine Bilirubin Urine Urobilinogen Ur Leukocyte Esterase Urine WBC (Auto) Urine RBC (Auto) Urine Casts (Auto) U Epithel Cells (Auto) Urine Bacteria (Auto) Urine Osmolality Ur Random Sodium Ur Random Potassium Ur Random Chloride 01/31/19 01/31/19 01/31/19 11:11 14:00 14:00 WBC RBC Hgb Hct MCV MCH MCHC RDW Plt Count MPV Absolute Neuts (auto) Neutrophils % Lymphocytes % Monocytes % Eosinophils % Basophils % Nucleated RBC % Sodium Potassium Chloride Carbon Dioxide Anion Gap BUN Creatinine Est GFR (CKD-EPI)AfAm Est GFR (CKD-EPI)NonAf POC Glucometer 99 Random Glucose Serum Osmolality Calcium Total Bilirubin AST ALT Alkaline Phosphatase Total Protein Albumin Triglycerides Cholesterol Total LDL Cholesterol HDL Cholesterol TSH Free T4 Urine Color Urine Appearance Urine pH Ur Specific [place] Urine Protein Urine Glucose (UA) Urine Ketones Urine Blood Urine Nitrite Urine Bilirubin Urine Urobilinogen Ur Leukocyte Esterase Urine WBC (Auto) Urine RBC (Auto) Urine Casts (Auto) U Epithel Cells (Auto) Urine Bacteria (Auto) Urine Osmolality 195 L Ur Random Sodium 54 Ur Random Potassium 11.1 L Ur Random Chloride 41 L 01/31/19 01/31/19 14:00 17:14 WBC RBC Hgb Hct MCV MCH MCHC RDW Plt Count MPV Absolute Neuts (auto) Neutrophils % Lymphocytes % Monocytes % Eosinophils % Basophils % Nucleated RBC % Sodium Potassium Chloride Carbon Dioxide Anion Gap BUN Creatinine Est GFR (CKD-EPI)AfAm Est GFR (CKD-EPI)NonAf POC Glucometer 83 Random Glucose Serum Osmolality Calcium Total Bilirubin AST ALT Alkaline Phosphatase Total Protein Albumin Triglycerides Cholesterol Total LDL Cholesterol HDL Cholesterol TSH Free T4 Urine Color Yellow Urine Appearance Clear Urine pH 8.5 H D Ur Specific [place] 1.006 L Urine Protein Negative Urine Glucose (UA) Negative Urine Ketones Negative Urine Blood Trace Urine Nitrite Negative Urine Bilirubin Negative Urine Urobilinogen 0.2 Ur Leukocyte Esterase Negative Urine WBC (Auto) 0 Urine RBC (Auto) 1 Urine Casts (Auto) 0 U Epithel Cells (Auto) 0.5 Urine Bacteria (Auto) 8.6 Urine Osmolality Ur Random Sodium Ur Random Potassium Ur Random Chloride Active Medications Generic Name Dose Route Start Last Admin Trade Name Freq PRN Reason Stop Dose Admin Heparin Sodium (Porcine) 5,000 unit 01/31/19 22:00 Heparin - SQ BID [facility] Lamotrigine 200 mg 01/31/19 22:00 Lamictal - PO HS [facility] Lamotrigine 100 mg 02/01/19 10:00 Lamictal - PO DAILY [facility] Levetiracetam 1,000 mg 01/31/19 22:00 Keppra - PO BID [facility] Levothyroxine Sodium 75 mcg 02/01/19 07:00 Synthroid - PO ACBK [facility] ASSESSMENT/PLAN: 53 year old female with PMhx of Hypothyroidism, seizures, legally blind, bradycardia, HLD, lymphedema arrived to ED from [facility] ([facility]) due to multiple falls in one week. Member fell (01/27,01/28, 911) when asked patient feels off balance when walking. # seizure with falls - last seizure activity 2x (May, October) in 2018 - continue with keppra 1000 mg BID - continue with lamictal 100mg po Am , 200mg po QHS - takes Coenzyme 30 mg daily - keppra/coenzyme level pending - neurology follow up recs - CT head: negative #Hypernatremia -likely 2/2 free water restriction -hydrate -monitor Na # Hypothyroidism -hypothermic, bradycardic - continue with synthroid 75 mcg - EKG: sinus shreya, no st changes #hypoglycemia -resolved # HLD - continue with zocor 20 mg po daily Visit type - Emergency Visit Emergency Visit: No - New Patient This patient is new to me today: Yes Date on this admission: 01/31/19 - Critical Care Critical Care patient: No ATTENDING PHYSICIAN STATEMENT I saw and evaluated the patient. I reviewed the resident's note and discussed the case with the resident. I agree with the resident's findings and plan as documented. SUBJECTIVE: OBJECTIVE: ASSESSMENT AND PLAN:
[2019-01-31] MEDS: levETIRAcetam 500 MG TABLET (FP) PO SCH (22:46)
[2019-01-31] MEDS: lamoTRIgine 100 MG TABLET (FP) PO SCH (22:46)
[2019-01-31] MEDS: HEPARIN NA (PORCINE) 5,000 UNITS/ML 1ML VIAL SQ SCH (22:46)
[2019-02-01] MEDS: LEVOTHYROXINE NA 75 MCG TABLET (FP) PO SCH (07:00)
[2019-02-01] MEDS: HEPARIN NA (PORCINE) 5,000 UNITS/ML 1ML VIAL SQ SCH ×2 (09:24→21:56)
--- NOTE | 2019-02-01 09:24 | PN ---
Progress Note (short form) - Note Progress Note: Renal coverage for Dr. Kohler Seen and examined at the bedside awake and alert no acute complaints drinking water Vital Signs Temperature 98.0 F 02/01/19 08:15 Pulse Rate 57 L 02/01/19 08:15 Respiratory Rate 16 02/01/19 08:15 Blood Pressure 86/59 L 02/01/19 08:15 O2 Sat by Pulse Oximetry (%) 99 01/31/19 21:00 Initial Vital Signs Temp Pulse Resp BP Pulse Ox 95.6 F L 57 L 18 117/72 100 01/30/19 18:53 01/30/19 18:53 01/30/19 18:53 01/30/19 18:53 01/30/19 18:53 NAD no LE edema CBC, BMP 01/31/19 07:27 01/31/19 07:27 Current Medications Heparin Sodium (Porcine) (Heparin -) 5,000 unit SQ BID [facility] Last Admin: 01/31/19 22:46 Dose: 5,000 unit Lamotrigine (Lamictal -) 200 mg PO HS [facility] Last Admin: 01/31/19 22:46 Dose: 200 mg Lamotrigine (Lamictal -) 100 mg PO DAILY [facility] Levetiracetam (Keppra -) 1,000 mg PO BID [facility] Last Admin: 01/31/19 22:46 Dose: 1,000 mg Levothyroxine Sodium (Synthroid -) 75 mcg PO ACBK [facility] Last Admin: 02/01/19 07:00 Dose: 75 mcg Impression 1. hypernatremia 2. legally blind 3. hypothyroidism 4. lymphedema 5. bradycardia 6. epilpsy Todays labs are still pending, will follow up pt is tolerating oral fluid intake, encouraged to continue to drink as per thrist apparently she was restricted to 60oz at long term. Alejo Hernandez DO
[2019-02-01] MEDS: levETIRAcetam 500 MG TABLET (FP) PO SCH ×2 (09:25→21:56)
[2019-02-01] MEDS ORDERED: lamoTRIgine 100 MG TABLET (FP) PO SCH (10:00)
[2019-02-01 10:43] LABS: BASO % 0.7 % (0-2.0); EOS % 2.6 % (0-4.5); HEMATOCRIT 29.9 % (32.4-45.2); HEMOGLOBIN 10.1 GM/dL (10.7-15.3); LYMPH % 48.5 % (8-40); MCH 30.3 pg (25.7-33.7); MCHC 33.7 g/dl (32.0-36.0); MEAN PLT VOLUME 8.9 fl (7.5-11.1); MONO % 9.6 % (3.8-10.2); NEUT % 38.6 % (42.8-82.8); PLATELET COUNT 123 K/MM3 (134-434); RBC 3.32 M/mm3 (3.60-5.2); RDW 16.3 % (11.6-15.6); WHITE BLOOD COUNT 2.8 K/mm3 (4.0-10.0)
[2019-02-01 10:56] LABS: ALBUMIN 3.1 g/dl (3.4-5.0); BILIRUBIN,TOTAL 0.4 mg/dL (0.2-1); BLOOD UREA NITROGEN 10.4 mg/dL (7-18); CALCIUM 8.9 mg/dL (8.5-10.1); CREATININE 0.7 mg/dL (0.55-1.3); POTASSIUM 3.8 mmol/L (3.5-5.1); TOT PROT 6.4 g/dl (6.4-8.2)
[2019-02-01 11:21] LABS: ANISOCYTOSIS 1+; MACROCYTOSIS 1+; PLATELET ESTIMATE DECREASED
--- NOTE | 2019-02-01 11:33 | PN ---
Physical Exam: SUBJECTIVE: Patient seen and examined, eating her breakfast, no complaints. OBJECTIVE: Vital Signs Period Temp Pulse Resp BP Sys/Andrade Pulse Ox Last 24 Hr 95.5 F-98.0 F 48-69 16-18 86-130/58-77 99 Intake & Output 01/29/19 01/30/19 01/31/19 02/01/19 23:59 23:59 23:59 23:59 Intake Total 100 100 10 Balance 100 100 10 Weight 107 lb 12.8 oz General: sitting in bed in no acute distress, awake, appropriate, HEENT: legally blind, right hi-orbital resolving ecchymosis Neck; Soft, supple, no JVD Chest: limited by habitus, no rales or wheezing Abdomen:Soft, Nt ND extremities: UE contractures with limited ROM Musculoskeletal: limited ROM left shoulder/clavicular region Psych: appropriate, co-operative Laboratory Results - last 24 hr 01/31/19 01/31/19 01/31/19 09:40 14:00 14:00 WBC RBC Hgb Hct MCV MCH MCHC RDW Plt Count MPV Absolute Neuts (auto) Neutrophils % Lymphocytes % Monocytes % Eosinophils % Basophils % Nucleated RBC % Sodium Potassium Chloride Carbon Dioxide Anion Gap BUN Creatinine Est GFR (CKD-EPI)AfAm Est GFR (CKD-EPI)NonAf POC Glucometer Random Glucose Serum Osmolality 310 H Calcium Total Bilirubin AST ALT Alkaline Phosphatase Total Protein Albumin Urine Color Urine Appearance Urine pH Ur Specific [place] Urine Protein Urine Glucose (UA) Urine Ketones Urine Blood Urine Nitrite Urine Bilirubin Urine Urobilinogen Ur Leukocyte Esterase Urine WBC (Auto) Urine RBC (Auto) Urine Casts (Auto) U Epithel Cells (Auto) Urine Bacteria (Auto) Urine Osmolality 195 L Ur Random Sodium 54 Ur Random Potassium 11.1 L Ur Random Chloride 41 L 01/31/19 01/31/19 01/31/19 14:00 17:14 22:39 WBC RBC Hgb Hct MCV MCH MCHC RDW Plt Count MPV Absolute Neuts (auto) Neutrophils % Lymphocytes % Monocytes % Eosinophils % Basophils % Nucleated RBC % Sodium Potassium Chloride Carbon Dioxide Anion Gap BUN Creatinine Est GFR (CKD-EPI)AfAm Est GFR (CKD-EPI)NonAf POC Glucometer 83 57 Random Glucose Serum Osmolality Calcium Total Bilirubin AST ALT Alkaline Phosphatase Total Protein Albumin Urine Color Yellow Urine Appearance Clear Urine pH 8.5 H D Ur Specific [place] 1.006 L Urine Protein Negative Urine Glucose (UA) Negative Urine Ketones Negative Urine Blood Trace Urine Nitrite Negative Urine Bilirubin Negative Urine Urobilinogen 0.2 Ur Leukocyte Esterase Negative Urine WBC (Auto) 0 Urine RBC (Auto) 1 Urine Casts (Auto) 0 U Epithel Cells (Auto) 0.5 Urine Bacteria (Auto) 8.6 Urine Osmolality Ur Random Sodium Ur Random Potassium Ur Random Chloride 01/31/19 02/01/19 02/01/19 22:41 02:39 06:00 WBC 2.8 L RBC 3.32 L Hgb 10.1 L Hct 29.9 L MCV 90.0 MCH 30.3 MCHC 33.7 RDW 16.3 H Plt Count 123 L D MPV 8.9 Absolute Neuts (auto) 1.1 L Neutrophils % 38.6 L Lymphocytes % 48.5 H Monocytes % 9.6 Eosinophils % 2.6 Basophils % 0.7 Nucleated RBC % 0 Sodium Potassium Chloride Carbon Dioxide Anion Gap BUN Creatinine Est GFR (CKD-EPI)AfAm Est GFR (CKD-EPI)NonAf POC Glucometer 60 65 Random Glucose Serum Osmolality Calcium Total Bilirubin AST ALT Alkaline Phosphatase Total Protein Albumin Urine Color Urine Appearance Urine pH Ur Specific [place] Urine Protein Urine Glucose (UA) Urine Ketones Urine Blood Urine Nitrite Urine Bilirubin Urine Urobilinogen Ur Leukocyte Esterase Urine WBC (Auto) Urine RBC (Auto) Urine Casts (Auto) U Epithel Cells (Auto) Urine Bacteria (Auto) Urine Osmolality Ur Random Sodium Ur Random Potassium Ur Random Chloride 02/01/19 02/01/19 06:54 09:46 WBC RBC Hgb Hct MCV MCH MCHC RDW Plt Count MPV Absolute Neuts (auto) Neutrophils % Lymphocytes % Monocytes % Eosinophils % Basophils % Nucleated RBC % Sodium 148 H Potassium 3.8 Chloride 107 Carbon Dioxide 37 H Anion Gap 3 L BUN 10.4 Creatinine 0.7 Est GFR (CKD-EPI)AfAm 114.65 Est GFR (CKD-EPI)NonAf 98.92 POC Glucometer 64 Random Glucose 65 L Serum Osmolality Calcium 8.9 Total Bilirubin 0.4 AST 43 H ALT 32 Alkaline Phosphatase 143 H Total Protein 6.4 Albumin 3.1 L Urine Color Urine Appearance Urine pH Ur Specific [place] Urine Protein Urine Glucose (UA) Urine Ketones Urine Blood Urine Nitrite Urine Bilirubin Urine Urobilinogen Ur Leukocyte Esterase Urine WBC (Auto) Urine RBC (Auto) Urine Casts (Auto) U Epithel Cells (Auto) Urine Bacteria (Auto) Urine Osmolality Ur Random Sodium Ur Random Potassium Ur Random Chloride Active Medications Generic Name Dose Route Start Last Admin Trade Name Carni PRN Reason Stop Dose Admin Heparin Sodium (Porcine) 5,000 unit 01/31/19 22:00 02/01/19 09:24 Heparin - SQ 5,000 unit BID USMAN Administration Lamotrigine 200 mg 01/31/19 22:00 01/31/19 22:46 Lamictal - PO 200 mg HS USMAN Administration Lamotrigine 100 mg 02/01/19 10:00 02/01/19 09:26 Lamictal - PO 100 mg DAILY USMAN Administration Levetiracetam 1,000 mg 01/31/19 22:00 02/01/19 09:25 Keppra - PO 1,000 mg BID USMAN Administration Levothyroxine Sodium 75 mcg 02/01/19 07:00 02/01/19 07:00 Synthroid - PO 75 mcg ACBK USMAN Administration Microbiology 01/31/19 11:12 Blood - Peripheral Venous Blood Culture - Preliminary NO GROWTH OBTAINED AFTER 24 HOURS, INCUBATION TO CONTINUE FOR 4 DAYS. 01/31/19 09:40 Blood - Peripheral Venous Blood Culture - Preliminary NO GROWTH OBTAINED AFTER 24 HOURS, INCUBATION TO CONTINUE FOR 4 DAYS. ASSESSMENT/PLAN: 53 yof with PMHx of Hypothyroidism, seizures, legally blind, bradycardia, lymphedema, ?hyponatremia, admitted with frequent falls, noted with hypothermia , bradycardia, hypernatremia -Recurrent falls/Gait instability, ?in the setting of hypoglycemia, seizure vs orthostasis. -Hypothermia, hypothyroidism, r/o infection -Hypernatremia, ?from fluid restriction, r/o DI (central vs nephrogenic),?drug mediated. -Hypoglycemia -Sinus bradycardia, ?hypothyroidism Plan: Orthostatics noted,. Encourage oral hydration and monitor. Carotid duplex. Neurology input noted. Increase lamictal. Continue keppra at current dose ( patient on 1000 mg BID). d/c scopolamine patch. Per patient, fluid restriction [facility] oz at the [facility]. Na better. Nephrology input noted. Liberalize free water intake and monitor for now. TSH noted, Hypothermia improved. Infection screen neg so far. Endocrine input noted. Persistent hypoglycemia, discussed with Dr. Guerra, will check insulin, proinsulin, c-peptide, sulfonylurea screen, beta hydroxybutyrate, cortisol, ACTH. CT A/P to assess adrenals. Low urine osmolarity. Continue levothyroxine. Dispo pending clinical improvement. Discussed with patient, nursing, and [facility] aide at bedside in detail, all questions answered. Visit type - Emergency Visit Emergency Visit: Yes ED Registration Date: 01/30/19 Care time: The patient presented to the Emergency Department on the above date and was hospitalized for further evaluation of their emergent condition. - New Patient This patient is new to me today: No - Critical Care Critical Care patient: No - Discharge Referral Referred to [facility] No
[2019-02-01] MEDS: lamoTRIgine 100 MG TABLET (FP) PO SCH (21:55)
[2019-02-02] MEDS: LEVOTHYROXINE NA 75 MCG TABLET (FP) PO SCH (06:17)
[2019-02-02 07:00] LABS: BASO % 0.6 % (0-2.0); EOS % 2.8 % (0-4.5); HEMATOCRIT 28.9 % (32.4-45.2); HEMOGLOBIN 9.7 GM/dL (10.7-15.3); LYMPH % 55.8 % (8-40); MCH 30.3 pg (25.7-33.7); MCHC 33.6 g/dl (32.0-36.0); MEAN PLT VOLUME 8.5 fl (7.5-11.1); MONO % 9.1 % (3.8-10.2); NEUT % 31.7 % (42.8-82.8); PLATELET COUNT 108 K/MM3 (134-434); RBC 3.21 M/mm3 (3.60-5.2); RDW 16.2 % (11.6-15.6); WHITE BLOOD COUNT 3.2 K/mm3 (4.0-10.0)
[2019-02-02 07:28] LABS: ALBUMIN 2.9 g/dl (3.4-5.0); BILIRUBIN,TOTAL 0.6 mg/dL (0.2-1); BLOOD UREA NITROGEN 10.8 mg/dL (7-18); CALCIUM 9.4 mg/dL (8.5-10.1); CREATININE 0.8 mg/dL (0.55-1.3); MAGNESIUM 2.2 mg/dL (1.8-2.4); POTASSIUM 4.7 mmol/L (3.5-5.1); TOT PROT 6.7 g/dl (6.4-8.2)
[2019-02-02] MEDS: HEPARIN NA (PORCINE) 5,000 UNITS/ML 1ML VIAL SQ SCH ×2 (09:46→21:27)
[2019-02-02] MEDS: levETIRAcetam 500 MG TABLET (FP) PO SCH ×2 (09:46→21:27)
[2019-02-02] MEDS: lamoTRIgine 100 MG TABLET (FP) PO SCH ×2 (09:47→21:27)
--- NOTE | 2019-02-02 14:58 | PN ---
Physical Exam: SUBJECTIVE: Patient seen and examined, some left shoulder pain, otherwise no complaints, drinking fluids. Doing well. OBJECTIVE: Vital Signs Period Temp Pulse Resp BP Sys/Andrade Pulse Ox Last 24 Hr 97.3 F-97.9 F 49-62 12-18 85-110/48-70 100-100 Intake & Output 01/30/19 01/31/19 02/01/19 02/02/19 23:59 23:59 23:59 23:59 Intake Total 100 100 680 820 Balance 100 100 680 820 Weight 107 lb 12.8 oz General: sitting in bed in no acute distress, awake, appropriate, HEENT: legally blind, right hi-orbital resolving ecchymosis Neck; Soft, supple, no JVD Chest: limited by habitus, no rales or wheezing Abdomen:Soft, Nt ND extremities: UE contractures with limited ROM, left shoulder/clavicular region ecchymosis Musculoskeletal: limited ROM left shoulder/clavicular region Psych: appropriate, co-operative Laboratory Results - last 24 hr 02/01/19 02/01/19 02/01/19 17:38 19:10 21:52 WBC RBC Hgb Hct MCV MCH MCHC RDW Plt Count MPV Absolute Neuts (auto) Neutrophils % Lymphocytes % Monocytes % Eosinophils % Basophils % Nucleated RBC % Sodium Potassium Chloride Carbon Dioxide Anion Gap BUN Creatinine Est GFR (CKD-EPI)AfAm Est GFR (CKD-EPI)NonAf POC Glucometer 56 103 93 Random Glucose Calcium Phosphorus Magnesium Total Bilirubin AST ALT Alkaline Phosphatase Total Protein Albumin 02/02/19 02/02/19 02/02/19 01:35 01:37 02:56 WBC RBC Hgb Hct MCV MCH MCHC RDW Plt Count MPV Absolute Neuts (auto) Neutrophils % Lymphocytes % Monocytes % Eosinophils % Basophils % Nucleated RBC % Sodium Potassium Chloride Carbon Dioxide Anion Gap BUN Creatinine Est GFR (CKD-EPI)AfAm Est GFR (CKD-EPI)NonAf POC Glucometer 57 63 97 Random Glucose Calcium Phosphorus Magnesium Total Bilirubin AST ALT Alkaline Phosphatase Total Protein Albumin 02/02/19 02/02/19 02/02/19 06:04 06:35 06:35 WBC 3.2 L RBC 3.21 L Hgb 9.7 L Hct 28.9 L MCV 90.0 MCH 30.3 MCHC 33.6 RDW 16.2 H Plt Count 108 L MPV 8.5 Absolute Neuts (auto) 1.0 L Neutrophils % 31.7 L Lymphocytes % 55.8 H Monocytes % 9.1 Eosinophils % 2.8 Basophils % 0.6 Nucleated RBC % 0 Sodium 145 Potassium 4.7 Chloride 105 Carbon Dioxide 37 H Anion Gap 3 L BUN 10.8 Creatinine 0.8 Est GFR (CKD-EPI)AfAm 97.55 Est GFR (CKD-EPI)NonAf 84.17 POC Glucometer 53 Random Glucose 89 Calcium 9.4 Phosphorus 3.0 Magnesium 2.2 Total Bilirubin 0.6 AST 40 H ALT 28 Alkaline Phosphatase 130 H Total Protein 6.7 Albumin 2.9 L 02/02/19 11:26 WBC RBC Hgb Hct MCV MCH MCHC RDW Plt Count MPV Absolute Neuts (auto) Neutrophils % Lymphocytes % Monocytes % Eosinophils % Basophils % Nucleated RBC % Sodium Potassium Chloride Carbon Dioxide Anion Gap BUN Creatinine Est GFR (CKD-EPI)AfAm Est GFR (CKD-EPI)NonAf POC Glucometer 74 Random Glucose Calcium Phosphorus Magnesium Total Bilirubin AST ALT Alkaline Phosphatase Total Protein Albumin Active Medications Generic Name Dose Route Start Last Admin Trade Name Freq PRN Reason Stop Dose Admin Heparin Sodium (Porcine) 5,000 unit 01/31/19 22:00 02/02/19 09:46 Heparin - SQ 5,000 unit BID USMAN Administration Lamotrigine 200 mg 01/31/19 22:00 02/01/19 21:55 Lamictal - PO 200 mg HS USMAN Administration Lamotrigine 200 mg 02/02/19 10:00 02/02/19 09:47 Lamictal - PO 200 mg DAILY USMAN Administration Levetiracetam 1,000 mg 01/31/19 22:00 02/02/19 09:46 Keppra - PO 1,000 mg BID USMAN Administration Levothyroxine Sodium 75 mcg 02/01/19 07:00 02/02/19 06:17 Synthroid - PO 75 mcg ACBK USMAN Administration ASSESSMENT/PLAN: 53 yof with PMHx of Hypothyroidism, seizures, legally blind, bradycardia, lymphedema, ?hyponatremia, admitted with frequent falls, noted with hypothermia , bradycardia, hypernatremia -Recurrent falls/Gait instability, ?in the setting of hypoglycemia, seizure vs orthostasis. -Hypothermia, hypothyroidism, r/o infection -Hypernatremia, ?from fluid restriction, r/o DI (central vs nephrogenic),?drug mediated. -Hypoglycemia -Sinus bradycardia, ?hypothyroidism -Left shoulder pain/ecchymosis Plan: Orthostatics noted,. Encourage oral hydration and monitor. Carotid duplex. Neurology input noted. Increased lamictal. Continue keppra at current dose ( patient on 1000 mg BID). d/c scopolamine patch. Per patient, fluid restriction 60 oz at the [facility]. Na better. Nephrology input noted. Liberalize free water intake and monitor for now. TSH noted, Hypothermia improved. Infection screen neg so far. Endocrine input noted. Persistent hypoglycemia, discussed with Dr. Guerra, follow up insulin, proinsulin, c-peptide, sulfonylurea screen, beta hydroxybutyrate, cortisol, ACTH. CT A/P results noted, no adrenal nodule/mass seen. Bladder scan with no evidence of retention, monitor. Low urine osmolarity. Continue levothyroxine. Check Left shoulder xray, PT eval. Dispo pending clinical improvement. Discussed with patient, nursing, and nursing in detail, all questions answered. Visit type - Emergency Visit Emergency Visit: Yes ED Registration Date: 01/30/19 Care time: The patient presented to the Emergency Department on the above date and was hospitalized for further evaluation of their emergent condition. - New Patient This patient is new to me today: No - Critical Care Critical Care patient: No - Discharge Referral Referred to [facility] No
[2019-02-03] MEDS ORDERED: SCOPOLAMINE HYDROBROMIDE 1 PATCH PATCH.TD72 TD SCH (04:00)
[2019-02-03] MEDS: LEVOTHYROXINE NA 75 MCG TABLET (FP) PO SCH (07:04)
[2019-02-03 07:16] LABS: BLOOD UREA NITROGEN 16.3 mg/dL (7-18); CALCIUM 9.4 mg/dL (8.5-10.1); POTASSIUM 4.3 mmol/L (3.5-5.1)
[2019-02-03 07:19] LABS: CREATININE 0.9 mg/dL (0.55-1.3)
[2019-02-03] MEDS: HEPARIN NA (PORCINE) 5,000 UNITS/ML 1ML VIAL SQ SCH ×2 (10:39→21:06)
[2019-02-03] MEDS: levETIRAcetam 500 MG TABLET (FP) PO SCH ×2 (10:40→21:06)
[2019-02-03] MEDS: lamoTRIgine 100 MG TABLET (FP) PO SCH ×2 (10:40→21:06)
--- NOTE | 2019-02-03 11:21 | PN ---
Physical Exam: SUBJECTIVE: Patient seen and examined at bedside. No acute events. BGM has been ok over the last 24hrs. OBJECTIVE: Vital Signs Period Temp Pulse Resp BP Sys/Andrade Pulse Ox Last 24 Hr 97.6 F-98.1 F 57-63 16-18 85-102/48-65 97 Gen: small stature, NAD, AAOx3 HEENT: NCAT, congenital blindness Neck: supple, no jvd Cardio: bradycardic, regular, no mrg, s1s2 Pulm: cta b/l Abd: soft, nontender, nondistended MSK: L shoulder with large ecchymosis (present since admission) Laboratory Results - last 24 hr 01/30/19 02/02/19 02/02/19 20:56 11:26 17:03 Sodium Potassium Chloride Carbon Dioxide Anion Gap BUN Creatinine Est GFR (CKD-EPI)AfAm Est GFR (CKD-EPI)NonAf POC Glucometer 74 89 Random Glucose Calcium Levetiracetam 45.7 H 02/02/19 02/03/19 02/03/19 21:25 05:45 05:47 Sodium 144 Potassium 4.3 Chloride 105 Carbon Dioxide 35 H Anion Gap 5 L BUN 16.3 Creatinine 0.9 Est GFR (CKD-EPI)AfAm 84.61 Est GFR (CKD-EPI)NonAf 73.00 POC Glucometer 77 64 Random Glucose 65 L Calcium 9.4 Levetiracetam 02/03/19 06:57 Sodium Potassium Chloride Carbon Dioxide Anion Gap BUN Creatinine Est GFR (CKD-EPI)AfAm Est GFR (CKD-EPI)NonAf POC Glucometer 75 Random Glucose Calcium Levetiracetam Active Medications Generic Name Dose Route Start Last Admin Trade Name Freq PRN Reason Stop Dose Admin Heparin Sodium (Porcine) 5,000 unit 01/31/19 22:00 02/03/19 10:39 Heparin - SQ 5,000 unit BID USMAN Administration Lamotrigine 200 mg 01/31/19 22:00 02/02/19 21:27 Lamictal - PO 200 mg HS USMAN Administration Lamotrigine 200 mg 02/02/19 10:00 02/03/19 10:40 Lamictal - PO 200 mg DAILY USMAN Administration Levetiracetam 1,000 mg 01/31/19 22:00 02/03/19 10:40 Keppra - PO 1,000 mg BID USMAN Administration Levothyroxine Sodium 75 mcg 02/01/19 07:00 02/03/19 07:04 Synthroid - PO 75 mcg ACBK USMAN Administration ASSESSMENT/PLAN: 53 year old female with PMhx of Hypothyroidism, seizures, legally blind, bradycardia, HLD, lymphedema arrived to ED from detention ([facility]) due to multiple falls in one week. Member fell (01/27,01/28, 911) when asked patient feels off balance when walking. # seizure with falls - last seizure activity 2x (May, October) in 2018 - continue with keppra 1000 mg BID - continue with lamictal 100mg po Am , 200mg po QHS - takes Coenzyme 30 mg daily - keppra level elevated. F/u with neuro regarding possible adjustment -coenzyme level pending - neurology follow up recs - CT head: negative #Hypernatremia: resolved -likely 2/2 free water restriction -monitor Na -may need to resume less stringent restriction -f/u endocrine # Hypothyroidism -hypothermic, bradycardic - continue with synthroid 75 mcg - EKG: sinus shreya, no st changes #hypoglycemia -f/u with endocrine -am cortisol, insulin, proinsulin, ketones, ACTH pending # HLD - continue with zocor 20 mg po daily Visit type - Emergency Visit Emergency Visit: No - New Patient This patient is new to me today: No - Critical Care Critical Care patient: No ATTENDING PHYSICIAN STATEMENT I saw and evaluated the patient. I reviewed the resident's note and discussed the case with the resident. I agree with the resident's findings and plan as documented. SUBJECTIVE: OBJECTIVE: ASSESSMENT AND PLAN:
--- NOTE | 2019-02-03 11:23 | PN ---
Teaching Attending Note Name of Resident: Woodrow Cerrato ATTENDING PHYSICIAN STATEMENT I saw and evaluated the patient. I reviewed the resident's note and discussed the case with the resident. I agree with the resident's findings and plan as documented with exceptions below. SUBJECTIVE: patient seen and examined, left shoulder region soreness, no complaints otherwise. OBJECTIVE: Vital Signs Period Temp Pulse Resp BP Sys/Andrade Pulse Ox Last 24 Hr 97.6 F-98.1 F 57-63 16-18 85-102/48-65 97 Intake & Output 01/31/19 02/01/19 02/02/19 02/03/19 23:59 23:59 23:59 23:59 Intake Total 400 502 5972 250 Balance 211 572 3289 250 General: sitting in bed in no acute distress, awake, appropriate, HEENT: legally blind, right hi-orbital resolving ecchymosis Neck; Soft, supple, no JVD Chest: limited by habitus, no rales or wheezing Abdomen:Soft, Nt ND extremities: UE contractures with limited ROM, left shoulder/clavicular region ecchymosis Musculoskeletal: limited ROM left shoulder/clavicular region Psych: appropriate, co-operative Home Medications Medication Instructions Recorded Calcium Carbonate/Vitamin D3 1 each PO DAILY 01/30/19 [Calcium 600 + D3 Softgel] Calcium Carbonate/Vitamin D3 1 each PO DAILY 01/30/19 [Calcium 600 + Vit D 400 Softgl] Cholecalciferol (Vitamin D3) 1,000 unit PO DAILY 01/30/19 [Vitamin D3] Lamotrigine [Lamictal] 100 mg PO AM 01/30/19 Lamotrigine [Lamictal] 200 mg PO HS 01/30/19 Levothyroxine Sodium [Synthroid] 75 mcg PO DAILY 01/30/19 Loratadine 10 mg PO DAILY 01/30/19 Miconazole Nitrate [Miconazorb AF] 71 gm TP BID 01/30/19 Multivitamin [Multiple Vitamins] 1 each PO DAILY 01/30/19 Simvastatin 20 mg PO DAILY 01/30/19 Thiamine HCl [Vitamin B-1] 100 mg PO DAILY 01/30/19 Ubidecarenone [Coenzyme Q-10] 30 mg PO DAILY 01/30/19 levETIRAcetam [Keppra -] 1,000 mg PO BID 01/30/19 Haloperidol [Haldol -] 0.5 tab PO HS 01/31/19 Olopatadine HCl [Pataday] 2.5 ml OP DAILY 01/31/19 Scopolamine 1 each TD Q3D 01/31/19 Active Medications Heparin Sodium (Porcine) (Heparin -) 5,000 unit SQ BID [facility] Last Admin: 02/03/19 10:39 Dose: 5,000 unit Lamotrigine (Lamictal -) 200 mg PO HS [facility] Last Admin: 02/02/19 21:27 Dose: 200 mg Lamotrigine (Lamictal -) 200 mg PO DAILY [facility] Last Admin: 02/03/19 10:40 Dose: 200 mg Levetiracetam (Keppra -) 1,000 mg PO BID [facility] Last Admin: 02/03/19 10:40 Dose: 1,000 mg Levothyroxine Sodium (Synthroid -) 75 mcg PO ACBK [facility] Last Admin: 02/03/19 07:04 Dose: 75 mcg Laboratory Results - last 24 hr 01/30/19 02/02/19 02/02/19 20:56 11:26 17:03 Sodium Potassium Chloride Carbon Dioxide Anion Gap BUN Creatinine Est GFR (CKD-EPI)AfAm Est GFR (CKD-EPI)NonAf POC Glucometer 74 89 Random Glucose Calcium Levetiracetam 45.7 H 02/02/19 02/03/19 02/03/19 21:25 05:45 05:47 Sodium 144 Potassium 4.3 Chloride 105 Carbon Dioxide 35 H Anion Gap 5 L BUN 16.3 Creatinine 0.9 Est GFR (CKD-EPI)AfAm 84.61 Est GFR (CKD-EPI)NonAf 73.00 POC Glucometer 77 64 Random Glucose 65 L Calcium 9.4 Levetiracetam 02/03/19 06:57 Sodium Potassium Chloride Carbon Dioxide Anion Gap BUN Creatinine Est GFR (CKD-EPI)AfAm Est GFR (CKD-EPI)NonAf POC Glucometer 75 Random Glucose Calcium Levetiracetam Microbiology 01/31/19 09:40 Blood - Peripheral Venous Blood Culture - Preliminary NO GROWTH OBTAINED AFTER 72 HOURS, INCUBATION TO CONTINUE FOR 2 DAYS. 01/31/19 14:00 Urine - Urine Clean Catch Urine Culture - Final Contaminated: Please Repeat 01/31/19 11:12 Blood - Peripheral Venous Blood Culture - Preliminary NO GROWTH OBTAINED AFTER 48 HOURS, INCUBATION TO CONTINUE FOR 3 DAYS. left shoulder xray deformity left distal clavicle ASSESSMENT AND PLAN: 53 yof with PMHx of Hypothyroidism, seizures, legally blind, bradycardia, lymphedema, ?hyponatremia, admitted with frequent falls, noted with hypothermia , bradycardia, hypernatremia -Recurrent falls/Gait instability, ?in the setting of hypoglycemia, seizure vs orthostasis. -Hypothermia, r/o infection -Hypernatremia, suspected from fluid restriction, less likely DI or drug mediated -Hypoglycemia -Sinus bradycardia, ?hypothyroidism -Left shoulder pain/ecchymosis, ?left distal clavicular fracture unclear age Plan: Orthostatics noted,. Encourage oral hydration and monitor. Carotid duplex. Neurology input noted. Increased lamictal. Keppra level supratherapeutic, discuss with neurology. Scopolamine patch dced. Per patient, [facility] Na continues to improve. Nephrology input noted. Fluid deficit resolving. Will need higher level of free water restriction on dc to avoid recurrent hyponatremia from excessive free water intake. TSH noted, Hypothermia improved. Infection screen neg so far. Endocrine input noted. Persistent hypoglycemia, discussed with Dr. Guerra, follow up insulin, proinsulin, c-peptide, sulfonylurea screen, beta hydroxybutyrate, cortisol, ACTH. Add bedtime snack. CT A/P results noted, no adrenal nodule/mass seen. Bladder scan with no evidence of retention, monitor. Low urine osmolarity. Continue levothyroxine. Shoulder xray noted, orthopedic input, Sling LUE. pain control tylenol. [facility] 48 hours if continues to improve. Discussed with patient, nursing, and nursing in detail, all questions answered.
--- NOTE | 2019-02-03 12:17 | PN ---
Progress Note, Physician History of Present Illness: Pt seen and examined at bedside. She is awake and appears comfortable. She denies shortness of breath. - Current Medication List Current Medications: Active Medications Heparin Sodium (Porcine) (Heparin -) 5,000 unit SQ BID [facility] Last Admin: 02/03/19 10:39 Dose: 5,000 unit Lamotrigine (Lamictal -) 200 mg PO HS [facility] Last Admin: 02/02/19 21:27 Dose: 200 mg Lamotrigine (Lamictal -) 200 mg PO DAILY [facility] Last Admin: 02/03/19 10:40 Dose: 200 mg Levetiracetam (Keppra -) 1,000 mg PO BID [facility] Last Admin: 02/03/19 10:40 Dose: 1,000 mg Levothyroxine Sodium (Synthroid -) 75 mcg PO ACBK [facility] Last Admin: 02/03/19 07:04 Dose: 75 mcg - Objective Vital Signs: Vital Signs Temperature 98.1 F 02/03/19 06:00 Pulse Rate 61 02/03/19 06:00 Respiratory Rate 17 02/03/19 06:00 Blood Pressure 102/50 L 02/03/19 06:00 O2 Sat by Pulse Oximetry (%) 97 02/02/19 21:00 Constitutional: Yes: Calm Eyes: Yes: Other (legally blind) HENT: Yes: Atraumatic Neck: Yes: Supple Cardiovascular: Yes: S1, S2 Respiratory: Yes: CTA Bilaterally Gastrointestinal: Yes: Normal Bowel Sounds, Soft Genitourinary: Yes: WNL Musculoskeletal: Yes: WNL Edema: Yes Edema: LLE: Trace, RLE: Trace Neurological: Yes: Oriented Psychiatric: Yes: Oriented Labs: CBC, BMP 02/02/19 06:35 02/03/19 05:45 Problem List - Problems (1) Bradycardia Code(s): R00.1 - BRADYCARDIA, UNSPECIFIED (2) Hypernatremia Code(s): E87.0 - HYPEROSMOLALITY AND HYPERNATREMIA (3) Hypothyroidism Code(s): E03.9 - HYPOTHYROIDISM, UNSPECIFIED (4) Legally blind Code(s): H54.8 - LEGAL BLINDNESS, DEFINED IN [place] (5) Multiple falls Code(s): R29.6 - REPEATED FALLS (6) Pancytopenia Code(s): D61.818 - OTHER PANCYTOPENIA (7) Seizure Code(s): R56.9 - UNSPECIFIED CONVULSIONS Assessment/Plan Current Medications Generic Name Dose Route Start Last Admin Trade Name Carin PRN Reason Stop Dose Admin Heparin Sodium (Porcine) 5,000 unit 01/31/19 22:00 02/03/19 10:39 Heparin - SQ 5,000 unit BID USMAN Administration Lamotrigine 200 mg 01/31/19 22:00 02/02/19 21:27 Lamictal - PO 200 mg HS USMAN Administration Lamotrigine 200 mg 02/02/19 10:00 02/03/19 10:40 Lamictal - PO 200 mg DAILY USMAN Administration Levetiracetam 1,000 mg 01/31/19 22:00 02/03/19 10:40 Keppra - PO 1,000 mg BID USMAN Administration Levothyroxine Sodium 75 mcg 02/01/19 07:00 02/03/19 07:04 Synthroid - PO 75 mcg ACBK USMAN Administration Impression 1. hypernatremia 2. legally blind 3. hypothyroidism 4. lymphedema 5. bradycardia 6. epilepsy Plan - sodium improving - likely etiology of hyernatremia is the fluid restriction - d/c fluid restriction - monitor sodium levels in custodial - pt does not have polyuria
--- NOTE | 2019-02-03 16:45 | CON.ORTH ---
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 Cardio/Vascular: Yes: Other (bradycardia) Renal/: Yes: Other (hyponatremia) ...: No Endocrine: Yes: Hypothyroidism - Alcohol/Substance Use Hx Alcohol Use: No History of Substance Use: reports: None - Smoking History Smoking history: Never smoked Have you smoked in the past 12 months: No - Social History ADL: Support Services History of Recent Travel: No Home Medications - Allergies Allergies/Adverse Reactions: Allergies Allergy/AdvReac Type Severity Reaction Status Date / Time No Known Allergies Allergy Verified 01/30/19 18:53 - Home Medications Home Medications: Ambulatory Orders Calcium Carbonate/Vitamin D3 [Calcium 600 + D3 Softgel] 1 each PO DAILY Calcium Carbonate/Vitamin D3 [Calcium 600 + Vit D 400 Softgl] 1 each PO DAILY Cholecalciferol (Vitamin D3) [Vitamin D3] 1,000 unit PO DAILY 01/30/19 Lamotrigine [Lamictal] 100 mg PO AM 01/30/19 Lamotrigine [Lamictal] 200 mg PO HS 01/30/19 Levothyroxine Sodium [Synthroid] 75 mcg PO DAILY 01/30/19 Loratadine 10 mg PO DAILY 01/30/19 Miconazole Nitrate [Miconazorb AF] 71 gm TP BID 01/30/19 Multivitamin [Multiple Vitamins] 1 each PO DAILY 01/30/19 Simvastatin 20 mg PO DAILY 01/30/19 Thiamine HCl [Vitamin B-1] 100 mg PO DAILY 01/30/19 Ubidecarenone [Coenzyme Q-10] 30 mg PO DAILY 01/30/19 levETIRAcetam [Keppra -] 1,000 mg PO BID 01/30/19 Haloperidol [Haldol -] 0.5 tab PO HS 01/31/19 Olopatadine HCl [Pataday] 2.5 ml OP DAILY 01/31/19 Scopolamine 1 each TD Q3D 01/31/19 Family Disease History - Family Disease History Family Disease History: CA: Mother (Lung Ca) Physical Exam for Ortho Vital Signs: Vital Signs Temperature 98.2 F 02/03/19 14:00 Pulse Rate 65 02/03/19 14:00 Respiratory Rate 20 02/03/19 14:00 Blood Pressure 108/62 02/03/19 14:00 O2 Sat by Pulse Oximetry (%) 97 02/02/19 21:00 Labs: CBC, BMP 02/02/19 06:35 02/03/19 05:45 - Upper Extremity Shoulder: Yes: Left, Ecchymosis, Limited ROM, Pain, Swelling, Tenderness, Other (nvi) Imaging - Results X-ray: Report Reviewed, Image Reviewed Assessment/Plan Pt is a 53 year old female with pmhx of hypothyroidism, epilepsy, legally blind , bradycardia, lymphedema, and hyponatremia treated with fluid restriction who presents to the ER with multiple falls. Xrays taken show a left distal clavicle fx. Pt currently states that she is having minimal pain. Denies any numbness or tingling. a/p- left mildly displaced distal clavicle fx in acceptable position No surgery at this time sling or comfort ROM as tolerated WBAT RUE ok to d/c from ortho pov f/u as outpt in 2 weeks d/w Dr. Rivera
[2019-02-04] MEDS: LEVOTHYROXINE NA 75 MCG TABLET (FP) PO SCH (06:07)
[2019-02-04 06:12] LABS: HEMATOCRIT 31.5 % (32.4-45.2); HEMOGLOBIN 10.7 GM/dL (10.7-15.3); MCH 30.5 pg (25.7-33.7); MCHC 33.9 g/dl (32.0-36.0); MEAN CELL VOLUME 90.1 fl (80-96); MEAN PLT VOLUME 8.2 fl (7.5-11.1); PLATELET COUNT 140 K/MM3 (134-434); RDW 16.3 % (11.6-15.6); WHITE BLOOD COUNT 3.7 K/mm3 (4.0-10.0)
[2019-02-04 07:32] LABS: BLOOD UREA NITROGEN 13.4 mg/dL (7-18); CALCIUM 9.7 mg/dL (8.5-10.1); CREATININE 0.8 mg/dL (0.55-1.3); POTASSIUM 4.9 mmol/L (3.5-5.1)
--- NOTE | 2019-02-04 09:22 | PN ---
Teaching Attending Note Name of Resident: Woodrow Cerrato ATTENDING PHYSICIAN STATEMENT I saw and evaluated the patient. I reviewed the resident's note and discussed the case with the resident. I agree with the resident's findings and plan as documented with exceptions below. SUBJECTIVE: Patient seen and examined. left shoulder pain better, eating well, tolerating diet. Eager to go back to her [facility]. OBJECTIVE: Vital Signs Period Temp Pulse Resp BP Sys/Andrade Pulse Ox Last 24 Hr 97.0 F-98.7 F 55-66 17-20 92-109/51-70 98 Intake & Output 02/01/19 02/02/19 02/03/19 02/04/19 23:59 23:59 23:59 23:59 Intake Total 680 1060 490 240 Balance 680 1060 490 240 General: sitting in bed, havi ASSESSMENT AND PLAN: 53 yof with PMHx of Hypothyroidism, seizures, legally blind, bradycardia, lymphedema, ?hyponatremia, admitted with frequent falls, noted with hypothermia , bradycardia, hypernatremia -Recurrent falls/Gait instability, ?in the setting of hypoglycemia, seizure vs orthostasis. -Hypothermia,neg screen for infection -Hypernatremia, suspected from fluid restriction, less likely DI or drug mediated -Hypoglycemia -Sinus bradycardia, ?hypothyroidism -Left shoulder pain/ecchymosis, ?left distal clavicular fracture unclear age Plan: Doing well, tolerating diet. Na improved. Nephrology input noted. remove fluid restriction on dc for now with close Na level monitoring. Hypoglycemia w/u sent. Improved. AM asymptomatic hypoglycemia, added bedtime snack. Close BGM monitoring and NH and outpatient follow up with her bridal gown fitter at [facility] (to discuss results of hypoglycemia w/u and additional test) CT A/p neg for adrenal concerns. orthopedic input. Left shoulder sling for comfort. PT eval. Keppra level noted, await neurology input to devise regimen on dc dc back to [facility] today with close BGM monitoring and endocrine follow up pending PT eval. Discussed with patient an nursing, all questions answered.
[2019-02-04] MEDS: levETIRAcetam 500 MG TABLET (FP) PO SCH ×2 (10:54→21:59)
[2019-02-04] MEDS: lamoTRIgine 100 MG TABLET (FP) PO SCH ×2 (10:55→21:59)
[2019-02-04] MEDS: HEPARIN NA (PORCINE) 5,000 UNITS/ML 1ML VIAL SQ SCH ×2 (10:57→21:58)
--- NOTE | 2019-02-04 14:22 | DS ---
Physical Exam: SUBJECTIVE: Patient seen and examined OBJECTIVE: Vital Signs Period Temp Pulse Resp BP Sys/Andrade Pulse Ox Last 24 Hr 97.0 F-98.7 F 55-66 19-20 92-108/51-66 98 PHYSICAL EXAM GENERAL: The patient is awake, alert, and fully oriented, in no acute distress. HEAD: Normal with no signs of trauma. EYES: PERRL, extraocular movements intact, sclera anicteric, conjunctiva clear. ENT: Ears normal, nares patent, oropharynx clear without exudates, moist mucous membranes. NECK: Trachea midline, full range of motion, supple. LUNGS: Breath sounds equal, clear to auscultation bilaterally, no wheezes, no crackles, no accessory muscle use. HEART: Regular rate and rhythm, S1, S2 without murmur, rub or gallop. ABDOMEN: Soft, nontender, nondistended, normoactive bowel sounds, no guarding, no rebound, no hepatosplenomegaly, no masses. EXTREMITIES: 2+ pulses, warm, well-perfused, no edema. NEUROLOGICAL: Cranial nerves II through XII grossly intact. Normal speech, gait not observed. PSYCH: Normal mood, normal affect. SKIN: Warm, dry, normal turgor, no rashes or lesions noted. LABS Laboratory Results - last 24 hr 02/02/19 02/03/19 02/03/19 06:35 17:21 21:04 WBC RBC Hgb Hct MCV MCH MCHC RDW Plt Count MPV Sodium Potassium Chloride Carbon Dioxide Anion Gap BUN Creatinine Est GFR (CKD-EPI)AfAm Est GFR (CKD-EPI)NonAf POC Glucometer 91 89 Random Glucose Insulin Level 16.0 Calcium 02/04/19 02/04/19 02/04/19 05:40 05:40 06:07 WBC 3.7 L RBC 3.50 L Hgb 10.7 Hct 31.5 L MCV 90.1 MCH 30.5 MCHC 33.9 RDW 16.3 H Plt Count 140 D MPV 8.2 Sodium 143 Potassium 4.9 Chloride 103 Carbon Dioxide 35 H Anion Gap 5 L BUN 13.4 Creatinine 0.8 Est GFR (CKD-EPI)AfAm 97.55 Est GFR (CKD-EPI)NonAf 84.17 POC Glucometer 60 Random Glucose 76 Insulin Level Calcium 9.7 HOSPITAL COURSE: Date of Admission:01/30/19 Date of Discharge: 02/04/19 Pt is stable for discharge Minutes to complete discharge: 30 Discharge Summary Reason For Visit: ATAXIA Current Active Problems Ataxia (Acute) Bradycardia (Acute) Hypernatremia (Acute) Hypothyroidism (Acute) Legally blind (Acute) Multiple falls (Acute) Pancytopenia (Acute) Seizure (Acute) Condition: Stable - Instructions Diet, Activity, Other Instructions: You were in the hospital because of possible seizures from abnormal sodium levels. You need to follow up with the following doctors: Your primary care doctor within 1 week. Your outside sales account representative within 1 week. If you are not able to reach your outside sales account representative, you are being given the contact information for the outside sales account representative who saw you in the hospital, Dr. Guerra. You should see your drafter assistant, as well. You are being given the contact information for the drafter assistant who saw you in the hospital, Dr. Kohler. You should follow up with Dr. Machado, orthopedic surgery. You should follow up with Dr. Hector, neurology. You are being sent with the following medication changes: Lamictal 200mg twice daily Keppra 1gm twice daily Stop taking your prior dosages of these medications. If your symptoms get worse or if you have another seizure, call your doctor or return to the emergency department. Referrals: Joaquín Hector MD [Staff Physician] - Joaquín Machado MD [Staff Physician] - Sugar Kohler MD [Staff Physician] - Octavia Guerra MD [Staff Physician] - Disposition: HALFWAY FACILITY - Home Medications Comprehensive Discharge Medication List: Ambulatory Orders Calcium Carbonate/Vitamin D3 [Calcium 600 + D3 Softgel] 1 each PO DAILY Calcium Carbonate/Vitamin D3 [Calcium 600 + Vit D 400 Softgl] 1 each PO DAILY Cholecalciferol (Vitamin D3) [Vitamin D3] 1,000 unit PO DAILY 01/30/19 Lamotrigine [Lamictal] 100 mg PO AM 01/30/19 Lamotrigine [Lamictal] 200 mg PO HS 01/30/19 Levothyroxine Sodium [Synthroid] 75 mcg PO DAILY 01/30/19 Loratadine 10 mg PO DAILY 01/30/19 Miconazole Nitrate [Miconazorb AF] 71 gm TP BID 01/30/19 Multivitamin [Multiple Vitamins] 1 each PO DAILY 01/30/19 Simvastatin 20 mg PO DAILY 01/30/19 Thiamine HCl [Vitamin B-1] 100 mg PO DAILY 01/30/19 Ubidecarenone [Coenzyme Q-10] 30 mg PO DAILY 01/30/19 levETIRAcetam [Keppra -] 1,000 mg PO BID 01/30/19 Haloperidol [Haldol -] 0.5 tab PO HS 01/31/19 Olopatadine HCl [Pataday] 2.5 ml OP DAILY 01/31/19 Scopolamine 1 each TD Q3D 01/31/19 - Discharge Referral Referred to [facility] Med P.C.: No ATTENDING PHYSICIAN STATEMENT I saw and evaluated the patient. I reviewed the resident's note and discussed the case with the resident. I agree with the resident's findings and plan as documented. SUBJECTIVE: OBJECTIVE: ASSESSMENT AND PLAN:
--- NOTE | 2019-02-04 14:41 | PN ---
Progress Note, Physician History of Present Illness: Pt seen and examined at bedside. She is awake and alert. She denies shortness of breath. - Current Medication List Current Medications: Active Medications Heparin Sodium (Porcine) (Heparin -) 5,000 unit SQ BID [facility] Last Admin: 02/04/19 10:57 Dose: 5,000 unit Lamotrigine (Lamictal -) 200 mg PO HS [facility] Last Admin: 02/03/19 21:06 Dose: 200 mg Lamotrigine (Lamictal -) 200 mg PO DAILY [facility] Last Admin: 02/04/19 10:55 Dose: 200 mg Levetiracetam (Keppra -) 1,000 mg PO BID [facility] Last Admin: 02/04/19 10:54 Dose: 1,000 mg Levothyroxine Sodium (Synthroid -) 75 mcg PO ACBK [facility] Last Admin: 02/04/19 06:07 Dose: 75 mcg - Objective Vital Signs: Vital Signs Temperature 98.1 F 02/04/19 10:00 Pulse Rate 54 L 02/04/19 10:00 Respiratory Rate 20 02/04/19 10:00 Blood Pressure 101/55 L 02/04/19 10:00 O2 Sat by Pulse Oximetry (%) 97 02/04/19 09:00 Constitutional: Yes: Calm HENT: Yes: Atraumatic Neck: Yes: Supple Cardiovascular: Yes: S1, S2 Respiratory: Yes: CTA Bilaterally Gastrointestinal: Yes: Normal Bowel Sounds, Soft Genitourinary: Yes: WNL Musculoskeletal: Yes: WNL Edema: Yes Edema: LLE: Trace, RLE: Trace Neurological: Yes: Oriented Psychiatric: Yes: Oriented Labs: CBC, BMP 02/04/19 05:40 02/04/19 05:40 Problem List - Problems (1) Bradycardia Code(s): R00.1 - BRADYCARDIA, UNSPECIFIED (2) Hypernatremia Code(s): E87.0 - HYPEROSMOLALITY AND HYPERNATREMIA (3) Hypothyroidism Code(s): E03.9 - HYPOTHYROIDISM, UNSPECIFIED (4) Legally blind Code(s): H54.8 - LEGAL BLINDNESS, DEFINED IN [place] (5) Multiple falls Code(s): R29.6 - REPEATED FALLS (6) Pancytopenia Code(s): D61.818 - OTHER PANCYTOPENIA (7) Seizure Code(s): R56.9 - UNSPECIFIED CONVULSIONS Assessment/Plan Current Medications Generic Name Dose Route Start Last Admin Trade Name Carin PRN Reason Stop Dose Admin Heparin Sodium (Porcine) 5,000 unit 01/31/19 22:00 02/04/19 10:57 Heparin - SQ 5,000 unit BID [facility] Administration Lamotrigine 200 mg 01/31/19 22:00 02/03/19 21:06 Lamictal - PO 200 mg HS [facility] Administration Lamotrigine 200 mg 02/02/19 10:00 02/04/19 10:55 Lamictal - PO 200 mg DAILY [facility] Administration Levetiracetam 1,000 mg 01/31/19 22:00 02/04/19 10:54 Keppra - PO 1,000 mg BID [facility] Administration Levothyroxine Sodium 75 mcg 02/01/19 07:00 02/04/19 06:07 Synthroid - PO 75 mcg ACBK [facility] Administration Impression 1. hypernatremia 2. legally blind 3. hypothyroidism 4. lymphedema 5. bradycardia 6. epilepsy Plan - sodium remains stable - monitor volume status - monitor sodium levels - etiology of hypernatremia was likely the fluid restriction that the pt was on. She has not displayed any polyuria and her sodium improved once we liberated her water intake. She has not been drinking excessive water either.
--- NOTE | 2019-02-04 16:45 | DS ---
Physical Exam: SUBJECTIVE: Patient seen and examined at bedside. No complaints. OBJECTIVE: Vital Signs Period Temp Pulse Resp BP Sys/Andrade Pulse Ox Last 24 Hr 97.0 F-98.7 F 54-66 19-20 92-108/51-68 97-98 PHYSICAL EXAM Gen: small stature, NAD, AAOx3 HEENT: NCAT, congenital blindness Neck: supple, no jvd Cardio: bradycardic, regular, no mrg, s1s2 Pulm: cta b/l Abd: soft, nontender, nondistended MSK: L shoulder with large ecchymosis (present since admission) LABS Laboratory Results - last 24 hr 02/02/19 02/02/19 02/03/19 06:35 06:35 17:21 WBC RBC Hgb Hct MCV MCH MCHC RDW Plt Count MPV Sodium Potassium Chloride Carbon Dioxide Anion Gap BUN Creatinine Est GFR (CKD-EPI)AfAm Est GFR (CKD-EPI)NonAf POC Glucometer 91 Random Glucose Insulin Level 16.0 Calcium ACTH 14.1 02/03/19 02/04/19 02/04/19 21:04 05:40 05:40 WBC 3.7 L RBC 3.50 L Hgb 10.7 Hct 31.5 L MCV 90.1 MCH 30.5 MCHC 33.9 RDW 16.3 H Plt Count 140 D MPV 8.2 Sodium 143 Potassium 4.9 Chloride 103 Carbon Dioxide 35 H Anion Gap 5 L BUN 13.4 Creatinine 0.8 Est GFR (CKD-EPI)AfAm 97.55 Est GFR (CKD-EPI)NonAf 84.17 POC Glucometer 89 Random Glucose 76 Insulin Level Calcium 9.7 ACTH 02/04/19 06:07 WBC RBC Hgb Hct MCV MCH MCHC RDW Plt Count MPV Sodium Potassium Chloride Carbon Dioxide Anion Gap BUN Creatinine Est GFR (CKD-EPI)AfAm Est GFR (CKD-EPI)NonAf POC Glucometer 60 Random Glucose Insulin Level Calcium ACTH HOSPITAL COURSE: Date of Admission:01/30/19 Date of Discharge: 02/04/19 53 year old female with PMhx of Hypothyroidism, seizures, legally blind, bradycardia, HLD, lymphedema arrived to ED from care home ([facility]) due to multiple falls in one week. Member fell (01/27,01/28, ) when asked patient feels off balance when walking. The patient was felt to have had a seizure with falls. This was likely due to Na disturbance as has happened to her in the past. Her last seizure activity was 2x (May, October) in 2017. She was maintained on keppra 1gm bid and lamictal was increased to 200mg bid. She also was given her Coenzyme 30 mg daily. She was seen by neurology. She had a negative head CT. Her hypernatremia resolved with liberlized water intake. She was given strict instructions to follow up with her brand recorder regarding fluid intake and sugar control. She was also instructed to have a bedtime snack to avoid becoming hypoglycemic. Her hypothyroidism was managed with her home synthroid. Her HLD was managed with zocor 20 mg po daily. Pt is stable for discharge. Haldol was d/c'ed Minutes to complete discharge: 30 Discharge Summary Reason For Visit: ATAXIA Current Active Problems Ataxia (Acute) Bradycardia (Acute) Hypernatremia (Acute) Hypothyroidism (Acute) Legally blind (Acute) Multiple falls (Acute) Pancytopenia (Acute) Seizure (Acute) Condition: Stable - Instructions Diet, Activity, Other Instructions: You were in the hospital because of falls and abnormal sodium levels. Your blood sugars were noted low and you were seen by brand recorder. Additional blood tests have been sent. MEDICATIONS: Your Lamictal has been increased to 200 mg twice daily Keppra 1000 mg twice daily. Stop your scopolamine patch. Continue other medications as before. INSTRUCTIONS: Your sodium levels were noted high, your free water intake has been liberalized. PLEASE ENSURE YOU DO NOT DRINK MORE THAN 2 LITERS FREE WATER IN 24 HOURS. Also your blood sugars were occasionally noted low,especially in the morning. Please HAVE A BEDTIME SNACK DAILY. Also your blood sugars will need to be strictly monitored before meals and at bedtime at the care home. Additional blood tests to address low blood sugars have been sent, (insulin, proinsulin, c-peptide, sulfonylurea screen, beta hydroxybutyrate, cortisol, ACTH ) results of which are currently pending. Please have your brand recorder follow up on results. You were noted with subacute fracture of distal clavicle. Sling left shoulder for comfort, activity as tolerated. FOLLOW UP: Blood work BMP (basic metabolic panel) in 1 week to assess your Na levels. Lamictal/Keppra levels in 2 weeks with your neurologist. Your primary care doctor within 1 week. Your brand recorder within 1 week. If you are not able to reach your brand recorder, you are being given the contact information for the brand recorder who saw you in the hospital, Dr. Guerra. You should see your credit union examiner, as well. You are being given the contact information for the credit union examiner who saw you in the hospital, Dr. Kohler. You should follow up with Dr. Machado, orthopedic surgery. You should follow up with Dr. Hector, neurology. If your symptoms get worse or if you have another seizure, call your doctor or return to the emergency department. Referrals: Joaquín Hector MD [Staff Physician] - Joaquín Machado MD [Staff Physician] - Sugar Kohler MD [Staff Physician] - Octavia Guerra MD [Staff Physician] - Disposition: LONG TERM FACILITY - Home Medications Comprehensive Discharge Medication List: Ambulatory Orders Calcium Carbonate/Vitamin D3 [Calcium 600 + Vit D 400 Softgl] 1 each PO DAILY Calcium Carbonate/Vitamin D3 [Calcium 600 + Vit D 400 Softgl] 1 each PO DAILY Cholecalciferol (Vitamin D3) [Vitamin D3] 1,000 unit PO DAILY 01/30/19 Lamotrigine [Lamictal] 200 mg PO HS 01/30/19 Levothyroxine Sodium [Synthroid] 75 mcg PO DAILY 01/30/19 Loratadine 10 mg PO DAILY 01/30/19 Miconazole Nitrate [Miconazorb AF] 71 gm TP BID 01/30/19 Multivitamin [Multiple Vitamins] 1 each PO DAILY 01/30/19 Simvastatin 20 mg PO DAILY 01/30/19 Thiamine HCl [Vitamin B-1] 100 mg PO DAILY 01/30/19 Ubidecarenone [Coenzyme Q-10] 30 mg PO DAILY 01/30/19 levETIRAcetam [Keppra -] 1,000 mg PO BID 01/30/19 Olopatadine HCl [Pataday] 2.5 ml OP DAILY 01/31/19 Lamotrigine [LaMICtal -] 200 mg PO DAILY tablet 02/04/19 This patient is new to me today: No Emergency Visit: No Critical Care patient: No - Discharge Referral Referred to [facility] Med P.C.: No ATTENDING PHYSICIAN STATEMENT I saw and evaluated the patient. I reviewed the resident's note and discussed the case with the resident. I agree with the resident's findings and plan as documented. SUBJECTIVE: OBJECTIVE: ASSESSMENT AND PLAN:
[2019-02-05] MEDS: LEVOTHYROXINE NA 75 MCG TABLET (FP) PO SCH (06:06)
[2019-02-05] MEDS: levETIRAcetam 500 MG TABLET (FP) PO SCH (09:22)
[2019-02-05] MEDS: lamoTRIgine 100 MG TABLET (FP) PO SCH (09:22)
[2019-02-05] MEDS: HEPARIN NA (PORCINE) 5,000 UNITS/ML 1ML VIAL SQ SCH (09:23)
--- NOTE | 2019-02-05 14:45 | PN ---
Progress Note (short form) - Note Progress Note: Seen this AM; case discussed with resident. Prior hospitalist completed discharge; she did not leave yesterday due to issues arranging transport with facility. Medically stable with no changes noted; she has no complaints this AM. Visit type - Emergency Visit Emergency Visit: No - New Patient This patient is new to me today: Yes Date on this admission: 02/05/19 - Critical Care Critical Care patient: No
[2019-02-05 15:27] VITALS: BP 100/63; PULSE 60; TEMP 97.6
== END 2019-02-05 15:47 | disposition home or self-care (01) | DRG 641 ==
LOC: JER 18:40 → JERBED 22:59 → J7W 01-31 00:28 → J4S 01-31 13:43
PROVIDERS: ADMIT Internal Medicine; ATTEND Internal Medicine
DX: E87.0 Hyperosmolality and hypernatremia (principal); D61.818 Other pancytopenia; E16.2 Hypoglycemia, unspecified; G40.909 Epilepsy, unspecified, not intractable, without status epilepticus; R27.0 Ataxia, unspecified; E03.9 Hypothyroidism, unspecified; T68.XXXA Hypothermia, initial encounter; H54.8 Legal blindness, as defined in USA; R00.1 Bradycardia, unspecified; I95.1 Orthostatic hypotension; E78.5 Hyperlipidemia, unspecified; S42.002A Fracture of unspecified part of left clavicle, initial encounter for closed fracture; W19.XXXA Unspecified fall, initial encounter; Y93.9 Activity, unspecified; Y92.89 Other specified places as the place of occurrence of the external cause; Y99.9 Unspecified external cause status
CPT/HCPCS: 36415; 70450-TC; 73030-TC-LT-FY; 74176-TC; 80048; 80053; 80061; 80177; 80299; 81003; 82010; 82024; 82436; 82533; 82542; 82962; 83525; 83721; 83735; 83930; 83935; 84100; 84133; 84300; 84439; 84443; 84681; 85025; 85027; 87040; 87086; 93005; 93010; 93880-TC; 97116-GP; 97161-GP; 99284-25; J1644